=== PATIENT | male | born 1950 | race Caucasian/White ===

== ENCOUNTER 2018-09-10 06:41 | Inpatient (IN) | payer OTHER ==
[2018-09-05 20:08] LABS: PLATELET COUNT 238 10^3/uL (150-400)
[2018-09-10] MEDS ORDERED: fentaNYL 50 MCG in SYRINGE INTRATHECAL 1 SYR IT ONE (07:37)
[2018-09-10] MEDS ORDERED: morphINE PF 0.2 MG in SYRINGE INTRATHECAL 1 SYR IT ONE (07:37)
[2018-09-10] MEDS ORDERED: GABAPENTIN 300 MG CAP PO ONE (07:37)
[2018-09-10] MEDS ORDERED: ACETAMINOPHEN 500 MG TAB PO ONE (07:37)
[2018-09-10] MEDS ORDERED: ceFAZolin 2 GM/DEXTROSE 100 ML IV ONE (07:37)
[2018-09-10] MEDS ORDERED: LR 1,000 ML IV SCH (08:00)
[2018-09-10] MEDS ORDERED: BUPIVACAINE 0.25% 30 ML SDV ONE (08:19)
[2018-09-10] MEDS ORDERED: EPINEPHrine 1 MG/ML INJ ONE (08:19)
[2018-09-10] MEDS ORDERED: THROMBIN (BOVINE) 20,000 UNIT VIAL TP ONE (08:19)
[2018-09-10] MEDS ORDERED: CHLORHEXIDINE GLUC HIBICLENS 118 ML BTL TP ONE (08:19)
[2018-09-10] MEDS ORDERED: BACITRACIN 50,000 UNITS/10 ML SYR IRR ONE ×2 (08:20→13:44)
[2018-09-10] MEDS ORDERED: PROPOFOL/EMULSION 500 MG/50 ML BOTTLE IV ONE ×2 (08:47→11:04)
[2018-09-10] MEDS ORDERED: LIDOCAINE 2% 5 ML SDV ONE (08:51)
[2018-09-10] MEDS ORDERED: RANITIDINE 50 MG/2 ML VIAL ONE (08:51)
[2018-09-10] MEDS ORDERED: ONDANSETRON 4 MG/2 ML VIAL ONE (08:51)
[2018-09-10] MEDS ORDERED: METOCLOPRAMIDE 10 MG/2 ML VIAL ONE (08:51)
[2018-09-10] MEDS ORDERED: ROCURONIUM 50 MG/5 ML VIAL ONE ×2 (08:51→10:36)
[2018-09-10] MEDS ORDERED: DEXMEDETOMIDINE HCL 400 MCG in NS 100 ML IV SCH (09:00)
[2018-09-10] MEDS ORDERED: TRANEXAMIC ACID 1,000 MG in NS 100 ML IV ONE ×2 (09:00→09:24)
--- NOTE | 2018-09-10 09:03 | PDHPUP ---
History & Physical Update H&P update statement: This history and physical update is based on an assessment of the patient which was completed after admission or registration (within 24 hours), but prior to the surgery/procedure. H&P update: H&P reviewed & patient examined, no change in patient's condition since H&P completed
[2018-09-10] MEDS ORDERED: CITRATE DEXTROSE SOLN 500 ML BAG ONE ×3 (09:23→14:55)
[2018-09-10] MEDS ORDERED: fentaNYL 100 MCG/2 ML INJ ONE (09:30)
[2018-09-10] MEDS ORDERED: MAGNESIUM SULFATE 1 GM/2 ML VIAL ONE (09:31)
[2018-09-10] MEDS ORDERED: ALBUMIN 5% 250 ML BOTTLE IV ONE (09:31)
[2018-09-10] MEDS ORDERED: BACITRACIN ZINC 0.5 OZ OINTTUBE TP ONE (10:12)
[2018-09-10] MEDS ORDERED: DIAZEPAM 5 MG/ML 1 ML SYR ONE (10:21)
--- NOTE | 2018-09-10 10:53 | PDANEPAE ---
ANE Past Medical History - Cardiovascular History Hx Hypertension: Yes Hx Arrhythmias: No Hx Chest Pain: No Hx Coronary Artery / Peripheral Vascular Disease: Yes Hx CHF / Valvular Disease: No Hx Palpitations: No Cardiovascular History Comment: STENTS X2 2016. [place] 2016 - Pulmonary History Hx COPD: No Hx Asthma/Reactive Airway Disease: No Hx Recent Upper Respiratory Infection: No Hx Oxygen in Use at Home: No Hx Sleep Apnea: No Sleep Apnea Screening Result - Last Documented: Positive - Neurologic History Hx Cerebrovascular Accident: Yes Hx Seizures: No Hx Dementia: No Neurologic History Comment: HEAT INDUCED STROKE 2011 - Endocrine History Hx Diabetes: Yes Endocrine History Comment: NIDDM - Renal History Hx Renal Disorders: No - Liver History Hx Hepatic Disorders: No - Neurological & Psychiatric Hx Hx Neurological and Psychiatric Disorders: No - Cancer History Hx Cancer: Yes Cancer History Comment: SKIN - Congenital Disorder History Hx Congenital Disorders: No - GI History Hx Gastrointestinal Disorders: Yes Gastrointestinal History Comment: GERD - Other Health History Other Health History: DJD. MILD GLAUCOMA - Chronic Pain History Chronic Pain: Yes (LOWER BACK) - Surgical History Prior Surgeries: LUMBAR FUSION X3 MOST RECENT 2013. RT TOTAL KNEE. RT KNEE ACL. RT THUMB RECONSTRUCTION. RT WRIST/ELBOW. RT SHLDR RTC. LT SHLDR RECONSTRLUCTION. RAEANN. UMBILICAL HERNIA. TONSILLECTOMY ANE Review of Systems Review of Systems: - Exercise capacity METS (RN): 3 METS ANE Patient History - Allergies Allergies/Adverse Reactions: adhesive Allergy (Verified 08/16/18 11:18) Iodinated Contrast- Oral and IV Dye Allergy (Verified 08/16/18 11:18) BLISTERS povidone-iodine [From Betadine] Allergy (Verified 08/16/18 11:18) BLISTERS soap [From Betadine] Allergy (Verified 08/16/18 11:18) BLISTERS - Home Medications Home Medications: Acetaminophen [Tylenol ES 500 mg (*)] 1,500 mg PO HS 08/16/18 [Last Taken ] Aspirin [Aspirin 81mg (*)] 81 mg PO DAILY 08/16/18 [Last Taken 09/09/18] Atorvastatin Calcium [Lipitor 40 mg (*)] 40 mg PO DAILY 08/16/18 [Last Taken ] Carboxymethylcellulose 1% [Refresh Celluvisc (*)] 1 drop EACHEYE DAILY 08/16/18 [Last Taken 09/03/18] Chlorthalidone [Chlorthalidone 25 mg (*)] 25 mg PO DAILY 08/16/18 [Last Taken ] Diltiazem HCl [Cartia XT 240mg] 240 mg PO DAILY 08/16/18 [Last Taken 09/10/18] Fluticasone Nasal [Flonase Nasal [place] (RX)] 2 sprays NASAL HS 08/16/18 [Last Taken 09/09/18] Furosemide [Lasix 40 MG (*)] 40 mg PO DAILY 08/16/18 [Last Taken 09/08/18] Gabapentin [Gralise] 900 mg PO DAILY18 08/16/18 [Last Taken 09/09/18] Herbals/Supplements -Info Only 1 ea PO DAILY 08/16/18 [Last Taken 09/03/18] Insulin Glargine [Lantus] 60 unit SC HS 08/16/18 [Last Taken 09/09/18] Insulin Lispro [Humalog] 45 unit SQ TIDMEAL 08/16/18 [Last Taken 09/09/18] Isosorbide Mononitrate [Imdur 30 mg (*)] 90 mg PO DAILY 08/16/18 [Last Taken ] Loratadine 10 mg PO DAILY 08/16/18 [Last Taken 09/08/18] Montelukast Sodium [Singulair 10 mg (*)] 10 mg PO DAILY 08/16/18 [Last Taken ] [place]-3 Fatty Acids [Fish Oil 1000 mg (*)] 1,000 mg PO DAILY 08/16/18 [Last Taken 09/03/18] Pantoprazole Sodium [Protonix 40mg (*)] 40 mg PO DAILY 08/16/18 [Last Taken 05/14] Prasugrel HCl [Effient 10mg (*)] 10 mg PO DAILY 08/16/18 [Last Taken 09/03/18] Ranolazine [RANEXA 500mg (RX)] 500 mg PO BID 08/16/18 [Last Taken 09/10/18] Sucralfate [Carafate 1 GM (*)] 1 gm PO TID 08/16/18 [Last Taken 09/10/18] diphenhydrAMINE [Benadryl 25 MG (*)] 75 mg PO HS 08/16/18 [Last Taken 09/09/18] metFORMIN HCL [Glucophage 500 mg (*)] 500 mg PO BIDMEAL 08/16/18 [Last Taken ] tiZANidine HCL [Zanaflex 2MG (*)] 2 mg PO DAILY 08/16/18 [Last Taken 09/08/18] - NPO status NPO Since - Liquids (Date): 09/10/18 NPO Since - Liquids (Time): 05:15 NPO Since - Solids (Date): 09/09/18 NPO Since - Solids (Time): 20:00 - Smoking Hx Smoking Status: Former smoker ANE Labs/Vital Signs - Labs Result Diagrams: 09/05/18 11:30 09/05/18 11:30 - Vital Signs Blood Pressure: 106/62 Heart Rate: 63 Respiratory Rate: 18 O2 Sat (%): 92 Height: 182.88 cm Weight: 131.542 kg ANE Physical Exam - Airway Neck exam: decreased ROM Mallampati Score: Class 3 Mouth exam: normal dental/mouth exam - Pulmonary Pulmonary: no respiratory distress, no rales or rhonchi, reduced air movement - Cardiovascular Cardiovascular: regular rate and rhythym, no murmur, rub, or gallop - ASA Status ASA Status: III ANE Anesthesia Plan Anesthesia Plan: general endotracheal anesthesia Lines/Monitors: arterial line, additional IV Specialized Airway: video laryngoscope
[2018-09-10] MEDS ORDERED: ePHEDrine SULFATE 25 MG/5 ML SYR ONE ×2 (11:04→13:15)
[2018-09-10] MEDS ORDERED: CALCIUM CHLORIDE 1 GM/10 ML INJ ONE (11:05)
[2018-09-10] MEDS ORDERED: NALOXONE HCL 0.4 MG/ML INJ IVP PRN ×2 (12:14→16:53)
[2018-09-10] MEDS ORDERED: ONDANSETRON 4 MG/2 ML VIAL IVP PRN ×2 (12:14→16:53)
[2018-09-10] MEDS ORDERED: ALBUTEROL 3 ML DEYVIAL IH PRN (12:14)
[2018-09-10] MEDS ORDERED: fentaNYL 100 MCG/2 ML INJ IVP PRN (12:14)
[2018-09-10] MEDS ORDERED: DEXAMETHASONE 4 MG/ML VIAL IVP PRN (12:14)
[2018-09-10] MEDS ORDERED: LR 500 ML IV PRN (12:14)
[2018-09-10] MEDS ORDERED: DIAZEPAM 5 MG/ML 1 ML SYR IVP PRN (12:14)
[2018-09-10] MEDS ORDERED: PROMETHAZINE HCL 25 MG/ML INJ IVP PRN (12:14)
[2018-09-10] MEDS ORDERED: PROPOFOL 200 MG/20 ML VIAL ONE ×4 (12:52→16:27)
[2018-09-10] MEDS ORDERED: ceFAZolin 1 GM VIAL ONE ×2 (13:26→15:51)
[2018-09-10] MEDS ORDERED: ONDANSETRON DISINTEGRATING 4 MG TAB PO PRN (16:53)
[2018-09-10] MEDS ORDERED: LACTULOSE 20 GM/30 ML UDCUP PO PRN (16:53)
[2018-09-10] MEDS ORDERED: MAGNESIUM HYDROXIDE 30 ML UDCUP PO PRN (16:53)
[2018-09-10] MEDS ORDERED: diphenhydrAMINE 25 MG CAP PO PRN (16:53)
[2018-09-10] MEDS ORDERED: BISACODYL 10 MG SUPP PR PRN (16:53)
--- NOTE | 2018-09-10 16:57 | SOAPPROG ---
SOAP Progress Note Assessment/Plan: Assessment: 68 yo M sp L5/S1 hardware removal, L2-S1 fusion with L2/3, L5/S1 TLIF Plan: stable to 3N LSO brace to be fit in am NASREEN x 1 please call with neuro changes 09/10/18 16:56 Subjective: + back pain, no leg pain. Objective: Vital Signs Temp Pulse Resp BP Pulse Ox 36.9 C 63 18 106/62 92 09/10/18 08:07 09/10/18 10:53 09/10/18 10:53 09/10/18 10:53 09/10/18 10:53 Laboratory Results 09/05/18 11:30 09/10/18 13:02 somnolent PERRL, EOMI UNIQUE x 4 + light touch ICD10 Worksheet Patient Problems: Problems Problem Status Onset Fusion of spine of lumbar region Acute - ICD10 Problem Qualifiers (1) Fusion of spine of lumbar region
[2018-09-10] MEDS ORDERED: NS 1,000 ML IV SCH (17:00)
--- NOTE | 2018-09-10 17:15 | POSTANESTH ---
Post Anesthetic Evaluation Cardiovascular Status: Normal, Stable, Similar to Pre-Op Cond Respiratory Status: Normal, Stable, Similar to Pre-op Cond. Level of Consciousness/Mental Status: Mildly Sleepy, Arousable Pain Control: Adequate, Prn Tx Ordered Nausea/Vomiting Control: Adequate, Prn Tx Ordered Complications Possibly Related to Anesthesia: None Noted
--- NOTE | 2018-09-10 17:35 | PDMN ---
Medical Necessity Medical necessity: Pt meets inpt criteria per MD order and [facility] [place] Lumbar Fusion, 2 days, [facility] IP only list. 68 y/o sp L5/S1 hardware removal, L2-S1 fusion w/L2/3, L5/S1 TLIF.
[2018-09-10] MEDS: INSULIN LISPRO 100 UNIT/ML SC SCH (19:32)
[2018-09-10] MEDS: SENNOSIDES/DOCUSATE SODIUM TAB PO SCH (22:05)
[2018-09-10] MEDS: RANOLAZINE 500 MG TAB.ER PO SCH (22:06)
[2018-09-10] MEDS: diphenhydrAMINE 25 MG CAP PO SCH (22:08)
[2018-09-10] MEDS: ACETAMINOPHEN 500 MG TAB PO SCH (22:08)
[2018-09-10] MEDS: POLYETHYLENE GLYCOL 3350 17 GM PKT PO SCH (22:09)
[2018-09-10] MEDS: SUCRALFATE 1 GM TAB PO SCH (22:31)
[2018-09-10] MEDS: ceFAZolin 2 GM/DEXTROSE 100 ML IV SCH (23:21)
[2018-09-10] MEDS: INSULIN GLARGINE 100 UNITS/ML UNIT SC SCH (23:35)
[2018-09-10] MEDS: FLUTICASONE NASAL 120 SPRAYS/16 GM MDI EACHNARE SCH (23:40)
--- NOTE | 2018-09-11 00:40 | PDHOSCONS ---
History and Physical - Chief Complaint Neurosurgery consult for eval/mgmt DM/HTN - History of Present Illness 68 yo M with PMH that includes CAD, DM, HTN, obesity and multiple prior spinal surgeries presenting for L2-S1 fusion revision. He has had failed prior spinal fusion with two previously failed revisions and has been having issues with increased pain radiating into his buttocks and was found to have failure of bony fusion and loosening screws. He is now being seen in the post operative period. He states that currently he is not in much pain, he notes that he lives with pain constantly and that it is his friend, and he does not let it bother him. He notes that other than his back pain he has been in relatively good health recently. He states his DM and HTN have been well controlled. No recent chest pain and since his stent he has not had recent cardiac issues. He resides in [place] with his and has a daughter and grand daughter he is very close to there. He notes that he always has slightly low oxygen levels, even when he is feeling fine and just sitting around his oxygen will dip into the 80s. He does not use oxygen at home. History Information - Allergies/Home Medication List Allergies/Adverse Reactions: adhesive Allergy (Verified 08/16/18 11:18) Iodinated Contrast- Oral and IV Dye Allergy (Verified 08/16/18 11:18) BLISTERS povidone-iodine [From Betadine] Allergy (Verified 08/16/18 11:18) BLISTERS soap [From Betadine] Allergy (Verified 08/16/18 11:18) BLISTERS Home Medications: Acetaminophen [Tylenol ES 500 mg (*)] 1,500 mg PO HS 08/16/18 [Last Taken ] Aspirin [Aspirin 81mg (*)] 81 mg PO DAILY 08/16/18 [Last Taken 09/09/18] Atorvastatin Calcium [Lipitor 40 mg (*)] 40 mg PO DAILY 08/16/18 [Last Taken ] Carboxymethylcellulose 1% [Refresh Celluvisc (*)] 1 drop EACHEYE DAILY 08/16/18 [Last Taken 09/03/18] Chlorthalidone [Chlorthalidone 25 mg (*)] 25 mg PO DAILY 08/16/18 [Last Taken ] Diltiazem HCl [Cartia XT 240mg] 240 mg PO DAILY 08/16/18 [Last Taken 09/10/18] Fluticasone Nasal [Flonase Nasal [place] (RX)] 2 sprays NASAL HS 08/16/18 [Last Taken 09/09/18] Furosemide [Lasix 40 MG (*)] 40 mg PO DAILY 08/16/18 [Last Taken 09/08/18] Gabapentin [Gralise] 900 mg PO DAILY18 08/16/18 [Last Taken 09/09/18] Herbals/Supplements -Info Only 1 ea PO DAILY 08/16/18 [Last Taken 09/03/18] Insulin Glargine [Lantus] 60 unit SC HS 08/16/18 [Last Taken 09/09/18] Insulin Lispro [Humalog] 45 unit SQ TIDMEAL 08/16/18 [Last Taken 09/09/18] Isosorbide Mononitrate [Imdur 30 mg (*)] 90 mg PO DAILY 08/16/18 [Last Taken ] Loratadine 10 mg PO DAILY 08/16/18 [Last Taken 09/08/18] Montelukast Sodium [Singulair 10 mg (*)] 10 mg PO DAILY 08/16/18 [Last Taken ] [place]-3 Fatty Acids [Fish Oil 1000 mg (*)] 1,000 mg PO DAILY 08/16/18 [Last Taken 09/03/18] Pantoprazole Sodium [Protonix 40mg (*)] 40 mg PO DAILY 08/16/18 [Last Taken 05/14] Prasugrel HCl [Effient 10mg (*)] 10 mg PO DAILY 08/16/18 [Last Taken 09/03/18] Ranolazine [RANEXA 500mg (RX)] 500 mg PO BID 08/16/18 [Last Taken 09/10/18] Sucralfate [Carafate 1 GM (*)] 1 gm PO TID 08/16/18 [Last Taken 09/10/18] diphenhydrAMINE [Benadryl 25 MG (*)] 75 mg PO HS 08/16/18 [Last Taken 09/09/18] metFORMIN HCL [Glucophage 500 mg (*)] 500 mg PO BIDMEAL 08/16/18 [Last Taken ] tiZANidine HCL [Zanaflex 2MG (*)] 2 mg PO DAILY 08/16/18 [Last Taken 09/08/18] I have personally reviewed and updated: family history, medical history, social history, surgical history - Past Medical History coronary artery disease, COPD, CVA, diabetes type 2, hypertension, hyperlipidemia, TIA Additional medical history: chronic back pain. 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 morbid obesity. DDD. esophageal spasm. GERD - Surgical History Reports: angioplasty, cholecystectomy, hernia repair, spinal surgery (multiple fusions and revisions), coronary stent Additional surgical history: multiple knee surgeries. shoulder replacement. knee replacement. tonsillectomy. sinus surgery. 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 Review of Systems Review of Systems: ROS: 10pt was reviewed & negative except for what was stated in HPI & below Physical Exam Physical Exam: Temp Pulse Resp BP Pulse Ox 36.7 C 73 16 122/60 H 94 09/10/18 23:58 09/10/18 23:58 09/10/18 23:58 09/10/18 23:58 09/10/18 23:58 O2 (L/minute) 2 Constitutional: no apparent distress, appears nourished Eyes: PERRL, anicteric sclera Ears, Nose, Mouth, Throat: moist mucous membranes, hearing normal Cardiovascular: regular rate and rhythym, no murmur, rub, or gallop, No edema Respiratory: reduced air movement, inspiratory crackles Gastrointestinal: normoactive bowel sounds, soft, non-tender abdomen, no palpable masses Genitourinary: no bladder tenderness Skin: warm, normal color Musculoskeletal: full muscle strength Neurologic: AAOx3 Psychiatric: interacting appropriately, not anxious, not encephalopathic Lab Data & Imaging Review 09/05/18 11:30 09/10/18 13:02 WBC 7.66 10^3/uL (3.80-9.50) 09/05/18 11:30 RBC 4.98 10^6/uL (4.40-6.38) 09/05/18 11:30 Hgb 15.7 g/dL (13.7-17.5) 09/05/18 11:30 Hct 45.2 % (40.0-51.0) 09/05/18 11:30 MCV 90.8 fL (81.5-99.8) 09/05/18 11:30 MCH 31.5 pg (27.9-34.1) 09/05/18 11:30 MCHC 34.7 g/dL (32.4-36.7) 09/05/18 11:30 RDW 13.6 % (11.5-15.2) 09/05/18 11:30 Plt Count 238 10^3/uL (150-400) 09/05/18 11:30 MPV 10.3 fL (8.7-11.7) 09/05/18 11:30 Neut % (Auto) 47.7 % (39.3-74.2) 09/05/18 11:30 Lymph % (Auto) 36.6 % (15.0-45.0) 09/05/18 11:30 [place] % (Auto) 10.2 % (4.5-13.0) 09/05/18 11:30 Eos % (Auto) 4.4 % (0.6-7.6) 09/05/18 11: Baso % (Auto) 0.7 % (0.3-1.7) 09/05/18 11: Nucleat RBC Rel Count 0.0 % (0.0-0.2) 09/05/18 11:30 Absolute Neuts (auto) 3.66 10^3/uL (1.70-6.50) 09/05/18 11:30 Absolute Lymphs (auto) 2.80 10^3/uL (1.00-3.00) 09/05/18 11:30 Absolute Monos (auto) 0.78 10^3/uL (0.30-0.80) 09/05/18 11:30 Absolute Eos (auto) 0.34 10^3/uL (0.03-0.40) 09/05/18 11:30 Absolute Basos (auto) 0.05 10^3/uL (0.02-0.10) 09/05/18 11:30 Absolute Nucleated RBC 0.00 10^3/uL (0-0.01) 09/05/18 11:30 Immature Gran % 0.4 % (0.0-1.1) 09/05/18 11:30 Immature Gran # 0.03 10^3/uL (0.00-0.10) 09/05/18 11:30 Puncture Site Cancelled 09/10/18 13:21 Patient Temperature Cancelled 09/10/18 13:21 pCO2 Cancelled 09/10/18 13:21 pO2 Cancelled 09/10/18 13:21 Total CO2 Cancelled 09/10/18 13:21 ABG pH Cancelled 09/10/18 13:21 ABG PO2/FiO2 Ratio Cancelled 09/10/18 13:21 ABG HCO3 Cancelled 09/10/18 13:21 ABG O2 Sat (Calculated) Cancelled 09/10/18 13:21 ABG O2 Saturation Cancelled 09/10/18 13:21 ABG Base Excess Cancelled 09/10/18 13:21 ABG Hemoglobin Cancelled 09/10/18 13:21 Total O2 Concentration Cancelled 09/10/18 13:21 O2 Concentration % Cancelled 09/10/18 13:21 POC Sodium Cancelled 09/10/18 13:21 POC Potassium Cancelled 09/10/18 13:21 Respiration Rate Cancelled 09/10/18 13:21 Actual Respiration Rate Cancelled 09/10/18 13:21 Set Respiration Rate Cancelled 09/10/18 13:21 SIMV Cancelled 09/10/18 13:21 Assist Control Cancelled 09/10/18 13:21 Vent Rate Cancelled 09/10/18 13:21 Inspiratory Time Cancelled 09/10/18 13:21 Expiratory Pressure Cancelled 09/10/18 13:21 Tidal Volume Cancelled 09/10/18 13:21 End Tidal CO2 Cancelled 09/10/18 13:21 PEEP Cancelled 09/10/18 13:21 Inspiratory Pressure Cancelled 09/10/18 13:21 Peak Inspir Pressure Cancelled 09/10/18 13:21 Pressure Support Cancelled 09/10/18 13:21 Pressure Control Cancelled 09/10/18 13:21 CPAP Cancelled 09/10/18 13:21 BiPAP Cancelled 09/10/18 13:21 Mode BiPAP Cancelled 09/10/18 13:21 Inspir/Expir Ratio Cancelled 09/10/18 13:21 Sodium 138 mEq/L (135-145) 09/05/18 11:30 Potassium 4.3 mEq/L (3.5-5.2) 09/05/18 11:30 Chloride 103 mEq/L (97-110) 09/05/18 11:30 Carbon Dioxide 23 mEq/l (22-31) 09/05/18 11:30 Anion Gap 12 mEq/L (6-14) 09/05/18 11:30 BUN 18 mg/dL (7-23) 09/05/18 11:30 Creatinine 0.9 mg/dL (0.7-1.3) 09/05/18 11:30 Estimated GFR > 60 09/05/18 11:30 Glucose 145 mg/dL (70-100) H 09/10/18 13:02 POC Glucose 89 mg/dL (70-100) 09/10/18 23:14 Calcium 9.3 mg/dL (8.5-10.4) 09/05/18 11:30 Ionized Calcium 1.18 MMOL/L (1.12-1.30) 09/10/18 13:02 Patient ABO/Rh O NEGATIVE 09/05/18 11:30 Antibody Screen NEGATIVE 09/05/18 11:30 Assessment & Plan Assessment: Fusion of spine of lumbar region (Acute) 68 yo M with PMH of HTN, DM2, obesity, CAD presenting for L2-S1 spinal fusion revision # L2-S1 spinal fusion revision: patient doing well postoperatively, drain still in place and patient on bed rest. PT/OT when cleared by NSG. # DM2: patient states it has been well controlled recently and so far here sugars are in the low range, continued on metformin and insulin regimen which is reasonable so long as no bump in creatinine in post op period, will monitor # CAD: with hx of several stents, patient chest pain free currently, no recent issues, does not appear to have acute decompensation, continue op meds including effient, asa and statin so long as ok with nsg #HTN: bp currently on the low end, resumed on imdur, dilt and lasix. Will monitor BP to be sure he is not overmedicated when resuming these and monitor renal function # HLD: continue statin # hypoxia: with o2 sats in 80s to low 90s on 2L, patient states his o2 always runs low somewhat, likely in part due to OHS/GARRICK # IP status Patient new to my care. Old records reviewed and summarized as above. Care plan reviewed with VIJAYA ARRINGTON. Thank you for this consultation, medicine will follow while in house.
[2018-09-11 04:58] LABS: PLATELET COUNT 189 10^3/uL (150-400)
[2018-09-11] MEDS: GABAPENTIN 900 MG PO SCH ×2 (05:20→18:22)
--- NOTE | 2018-09-11 07:40 | NEUSURGPN ---
Date of Surgery: 09/10/18 Post Op Day: 1 Assessment/Plan: Assessment: 68 yo M sp L5/S1 hardware removal, L2-S1 fusion with L2/3, L5/S1 TLIF POD#1 Plan: -Patient to be fit with brace this am -Post op xrays pending -NASREEN, will keep in -Pain management -PT/OT -Appreciate Hospitalist help with medical management Discussed with Dr Ramirez Please call with questions/concerns Subjective: minimal low back pain Objective: AxOx4 PERRLA MAEx4 5/5 BLE Sensation intact to light touch BLE Incision CDI NASREEN patent Neuro Check Frequency: per routine Urinary Catheter in Place: No - Physician Discussed Patient with : Gabrielle Neurosurgery Physical Exam - Vitals, I&O, Labs I and O 09/10/18 09/11/18 09/12/18 05:59 05:59 05:59 Intake Total 4440 Output Total 2845 Balance 1595 Weight 131.54 kg Intake: Oral (ml) 1450 IV Intake (ml) 2990 Output: Urine (ml) 1425 Catheter 1425 Estimated Blood Loss (ml) 1000 NASREEN Drain Output (ml) 420 Right Back 420 Other: Intake Quantity Yes Sufficient Vital Signs Temp Pulse Resp BP Pulse Ox 37.1 C 70 18 121/63 H 91 L 09/11/18 07:29 09/11/18 07:29 09/11/18 07:29 09/11/18 07:29 09/11/18 07:29 Laboratory Results 09/11/18 04:26 09/11/18 04:26 ICD10 Worksheet Patient Problems: Problems Problem Status Onset Fusion of spine of lumbar region Acute
[2018-09-11] MEDS: INSULIN LISPRO 100 UNIT/ML SC SCH ×3 (09:03→17:48)
[2018-09-11] MEDS: ENOXAPARIN 40 MG/0.4 ML SYR SC SCH (09:04)
[2018-09-11] MEDS: CETIRIZINE 10 MG TAB PO SCH (09:06)
[2018-09-11] MEDS: DILTIAZEM XR 240 MG CAP PO SCH (09:06)
[2018-09-11] MEDS: PANTOPRAZOLE SODIUM 40 MG TAB PO SCH (09:06)
[2018-09-11] MEDS: ISOSORBIDE MONONITRATE 30 MG TAB.SR PO SCH (09:06)
[2018-09-11] MEDS: ceFAZolin 2 GM/DEXTROSE 100 ML IV SCH (09:06)
[2018-09-11] MEDS: ATORVASTATIN CALCIUM 40 MG TAB PO SCH (09:06)
[2018-09-11] MEDS: POLYETHYLENE GLYCOL 3350 17 GM PKT PO SCH ×3 (09:07→22:31)
[2018-09-11] MEDS: RANOLAZINE 500 MG TAB.ER PO SCH ×2 (09:07→22:29)
[2018-09-11] MEDS: MONTELUKAST SODIUM 10 MG TAB PO SCH (09:07)
[2018-09-11] MEDS: FUROSEMIDE 40 MG TAB PO SCH (09:07)
[2018-09-11] MEDS: ASPIRIN 81 MG CHEWABLE TAB PO SCH (09:07)
[2018-09-11] MEDS: SENNOSIDES/DOCUSATE SODIUM TAB PO SCH ×2 (09:07→22:31)
[2018-09-11] MEDS: tiZANidine HCL 2 MG TAB PO SCH (09:07)
[2018-09-11] MEDS: CHLORTHALIDONE 25 MG TAB PO SCH (09:07)
[2018-09-11] MEDS: CARBOXYMETHYLCELLULOSE 1% 0.4 ML DROPERETTE EACHEYE SCH (09:08)
[2018-09-11] MEDS: SUCRALFATE 1 GM TAB PO SCH ×3 (09:08→22:29)
--- NOTE | 2018-09-11 10:42 | GOP ---
[f rep st] OPERATIVE REPORT DATE OF OPERATION: 09/10/2018 SURGEON: John Paul Anthony MD NEUROSURGEON: FRANCISCA Cervantes [employer] UT[employer] WORKER: FRANCISCA Berumen ANESTHESIA: General endotracheal. PREOPERATIVE DIAGNOSIS: Severe adjacent level degeneration and spinal stenosis at L2-3, status post multiple prior lumbosacral surgeries from L3 through S1 with instrumentation and fusion. L5-S1 nonu nion with failed hardware and loosened screws. Intractable back pain and bilateral lower extremity r adicular symptoms. Failed conservative care. Morbid obesity. POSTOPERATIVE DIAGNOSIS: Severe adjacent level degeneration and spinal stenosis at L2-3 status post multiple prior lumbosacral surgeries from L3 through S1 with instrumentation and fusion. L5-S1 nonun ion with failed hardware and loosened the screws. Intractable back pain and bilateral lower extremit y radicular symptoms. Failed conservative care. Morbid obesity. PROCEDURE PERFORMED: Removal of posterior nonsegmental (pedicle screw) fixation at L5-S1 with explor ation of spinal fusion and right-sided far lateral transpedicular decompression at the L2-3 and L5-S1 levels with redo posterior hemilaminectomy and foraminotomies at L3-4 and L4-5. L2 through S1 poste rior segment segmental (pedicle screw) fixation and posterolateral fusion with local autograft, bone morphogenic protein, and morselized allograft. L2-3 and L5-S1 posterior/transforaminal lumbar interbo dy fusion with 2 structural PEEK interbody spacers, local autograft and bone morphogenic protein. Us e of intraoperative microscopy, fluoroscopy, and computer volumetric stereotactic navigation with int raoperative neurophysiologic testing. Injection of intrathecal narcotic analgesics in subcutaneous a nd intramuscular local anesthesia for postoperative pain control. FINDINGS: ESTIMATED BLOOD LOSS: 500 cc. INDICATIONS: The patient is a 68-year-old, morbidly obese man with intractable low back pain and lamberto ateral lower extremity radicular symptoms, secondary to a nonunion at the L5-S1 level and loosened rowan rdware, and severe neuroforaminal encroachment with multiple prior surgeries and adjacent level degen eration and spinal stenosis the L2-3 level as well. He has failed extensive conservative care and pr esents now for revision posterior surgical decompression and stabilization removal and replacement of hardware, and exploration of spinal fusion. DESCRIPTION OF PROCEDURE: After informed consent was obtained, the patient was taken to the operatin g room and placed in the prone position on the Miguel A table. The thoracolumbosacral areas were prep ped and draped in a sterile fashion. After fluoroscopic localization of the correct levels the subcu taneous and intramuscular tissues were infiltrated with local anesthesia. A midline linear incision was then created from approximately L2 to S1. This was carried down to the fascial layer, which was incised using monopolar electrocautery and carried in a subperiosteal plane along the spinous processes and lamina bilaterally. Note that the exposure took approximately 5 jyotsna es as long as normal due to the extreme amount of obesity and extensive amount of scar tissue. The p rior screws were eventually identified and removed. This was much more difficult than normal given t hat we really could not get very far out lateral due to scar tissue and morbid obesity. Eventually, we did get the screws out and brought the microscope in and did a far lateral transpedicular decompre ssions at the L2-3 and L5-S1 levels and redo posterior hemilaminectomies and foraminotomies at the L3 -4 and L4-5 levels. Again, this took approximately 3 to 4 times as long as normal due to increase bl ood loss due to the increased abdominal pressure from his obesity and the extreme depth of the incisi on. None of the instruments we had were long enough even though we were using the bariatric sat. Ev entually, we were able to achieve excellent decompressions, but this took approximately 4 to 5 times as long as normal. The Stealth neuronavigational system was then brought in and pedicle screws placed at L2-S1 bilateral ly. Each individual screw was tested neurophysiologically with monopolar electrostimulation and inte rpretation of the potentials by the surgeon. Again this was much more time consuming than normal giv en this obesity, blood loss, and scar tissue. Following placement of the screws serial distraction w as created first across L5-S1, then at L2-3 during which time complete diskectomies were performed wi th preparation of the endplates and placement of 2 structural PEEK interbody spacers, local autograft and bone morphogenic protein for L2-3 and L5-S1 posterior/transforaminal lumbar interbody fusion frederic hniques. The small rods were removed and larger rods extending from L2-S1 replaced and secured under a slight amount of compression in order to facilitate bony union and to minimize the potential for p osterior graft migration. We also maximized the amount of lordosis we could achieve. Again, all thi s took approximately 4 to 5 times as long as normal primarily due to the depth of the incision, the s car tissue, and his obesity. Eventually, we did achieve an excellent surgical outcome and after plac ing the rods, performed extensive decortication from L2 to S1 and placed the residual local autograft , along with bone morphogenic protein and morselized allograft out laterally for an L2 to S1 posterol ateral fusion. 200 mcg of Duramorph, along with 50 mcg of fentanyl were injected intrathecally for p ostoperative pain control. The subcutaneous and intramuscular tissues were re-infiltrated with local anesthesia. A drain was placed and after re-verification of good position of the screws, rods, and interbody spacers using biplanar fluoroscopy, the wound was closed in a layered fashion using interru pted Vicryl sutures, followed by Steri-Strips on the skin. COMPLICATIONS: None. DISPOSITION: The patient was extubated and transferred to the recovery room in stable condition. /[id number]/MODL
--- NOTE | 2018-09-11 13:58 | HOSPPROG ---
Hospitalist Progress Note Assessment/Plan: Fusion of spine of lumbar region (Acute) 68 yo M with PMH of HTN, DM2, obesity, CAD presenting for L2-S1 spinal fusion revision. First encounter, chart reviewed. # L2-S1 spinal fusion revision: -patient doing well postoperatively -drain still in place -PT/OT # DM2: -patient states it has been well controlled recently and so far here sugars are in the low range, -continued on metformin and insulin regimen which is reasonable so long as no bump in creatinine in post op period -will monitor # CAD: -with hx of several stents, -patient chest pain free currently, no recent issues, does not appear to have acute decompensation, -continue op meds including effient, -asa and statin so long as ok with nsg #HTN: -bp currently on the low end, -resumed on imdur, dilt and lasix. -Will monitor BP to be sure he is not overmedicated when resuming these and monitor renal function # HLD: -continue statin # hypoxia: -with o2 sats in 80s to low 90s on 2L, -patient states his o2 always runs low somewhat, likely in part due to OHS/GARRICK # IP status Patient new to my care Thank you for this consultation, medicine will follow while in house. Subjective: Up in chair. No pain currently. Wants to leave the hospital. Objective: Vital Signs Temp Pulse Resp BP Pulse Ox 36.8 C 73 19 103/50 L 92 09/11/18 11:16 09/11/18 11:16 09/11/18 11:16 09/11/18 11:16 09/11/18 11:16 Laboratory Results 09/11/18 04:26 09/11/18 04:26 09/10/18 09/11/18 09/12/18 05:59 05:59 05:59 Intake Total 4440 500 Output Total 2845 60 Balance 1595 440 - Physical Exam Constitutional: appears nourished, not in pain, obese Eyes: PERRL, anicteric sclera, EOMI Ears, Nose, Mouth, Throat: moist mucous membranes, hearing normal, ears appear normal Cardiovascular: No JVD, No tachycardia, No edema Respiratory: no respiratory distress, no rales or rhonchi, reduced air movement Gastrointestinal: normoactive bowel sounds, No tenderness, No ascites Skin: warm, normal color, No mottled Musculoskeletal: joint tenderness, pain with ROM, generalized weakness Neurologic: AAOx3 Psychiatric: interacting appropriately, not anxious, not encephalopathic, thought process linear ICD10 Worksheet Patient Problems: Problems Problem Status Onset Fusion of spine of lumbar region Acute
--- NOTE | 2018-09-11 14:49 | ASMTCMCOM ---
CM Note CM Note Notes: Pt had planned spinal surgery, resides with spouse and adult dghtr resides in basement. PT rec home/outpatient, OT rec home/HHC. CM to follow pt progress. Date Signed: 09/11/2018 02:48 PM Electronically Signed By:KRISTEN Foreman
[2018-09-11] MEDS: HYDROmorphONE/DILAUDID 1 MG/ML INJ IVP PRN ×2 (17:47→21:26)
[2018-09-11] MEDS: metFORMIN HCL 500 MG TAB PO SCH (17:48)
[2018-09-11] MEDS: oxyCODONE IR 5 MG TAB PO PRN ×2 (18:01→22:36)
[2018-09-11] MEDS: ACETAMINOPHEN 500 MG TAB PO SCH (22:28)
[2018-09-11] MEDS: diphenhydrAMINE 25 MG CAP PO SCH (22:29)
[2018-09-11] MEDS: FLUTICASONE NASAL 120 SPRAYS/16 GM MDI EACHNARE SCH (22:31)
[2018-09-11] MEDS: INSULIN GLARGINE 100 UNITS/ML UNIT SC SCH (23:23)
[2018-09-12] MEDS: oxyCODONE IR 5 MG TAB PO PRN ×4 (04:46→18:27)
--- NOTE | 2018-09-12 07:37 | SOAPPROG ---
SOAP Progress Note Assessment/Plan: Assessment: 68 yo male POD #2 sp L2-S1 fusion with L2/3 and 5/1 TLIF. Doing well this AM Plan: Continue NASREEN to self suction PT/OT as tolerated NASREEN to self suction 09/12/18 07:33 09/12/18 12:41 09/12/18 12:42 Subjective: lying in bed, comfortable. Denies leg pain tingling or weakness. Objective: Vital Signs Temp Pulse Resp BP Pulse Ox 36.6 C 65 18 134/62 H 90 L 09/12/18 07:26 09/12/18 07:26 09/12/18 07:26 09/12/18 07:26 09/12/18 07:26 Laboratory Results 09/11/18 04:26 09/11/18 04:26 09/11/18 09/12/18 09/13/18 05:59 05:59 05:59 Intake Total 4440 500 400 Output Total 2845 305 Balance 1595 195 400 NASREEN: 305ml Neuro: MICHELLE, sens +LT follows commands Dressing: CDI Ambulatory in LSO brace Post op lumbar xrays show well positioned hardware ICD10 Worksheet Patient Problems: Problems Problem Status Onset Fusion of spine of lumbar region Acute
[2018-09-12] MEDS: INSULIN LISPRO 100 UNIT/ML SC SCH ×3 (08:48→21:48)
[2018-09-12] MEDS: ENOXAPARIN 40 MG/0.4 ML SYR SC SCH (08:48)
[2018-09-12] MEDS: DILTIAZEM XR 240 MG CAP PO SCH (08:49)
[2018-09-12] MEDS: PANTOPRAZOLE SODIUM 40 MG TAB PO SCH (08:49)
[2018-09-12] MEDS: RANOLAZINE 500 MG TAB.ER PO SCH ×2 (08:49→21:47)
[2018-09-12] MEDS: FUROSEMIDE 40 MG TAB PO SCH (08:49)
[2018-09-12] MEDS: ASPIRIN 81 MG CHEWABLE TAB PO SCH (08:49)
[2018-09-12] MEDS: ISOSORBIDE MONONITRATE 30 MG TAB.SR PO SCH (08:49)
[2018-09-12] MEDS: CARBOXYMETHYLCELLULOSE 1% 0.4 ML DROPERETTE EACHEYE SCH (08:49)
[2018-09-12] MEDS: tiZANidine HCL 2 MG TAB PO SCH (08:49)
[2018-09-12] MEDS: metFORMIN HCL 500 MG TAB PO SCH ×2 (08:50→18:27)
[2018-09-12] MEDS: METHOCARBAMOL 750 MG TAB PO PRN ×3 (08:50→21:46)
[2018-09-12] MEDS: SUCRALFATE 1 GM TAB PO SCH ×3 (08:50→21:46)
[2018-09-12] MEDS: ATORVASTATIN CALCIUM 40 MG TAB PO SCH (08:50)
[2018-09-12] MEDS: CHLORTHALIDONE 25 MG TAB PO SCH (08:50)
[2018-09-12] MEDS: MONTELUKAST SODIUM 10 MG TAB PO SCH (08:50)
[2018-09-12] MEDS: CETIRIZINE 10 MG TAB PO SCH (08:50)
[2018-09-12] MEDS: SENNOSIDES/DOCUSATE SODIUM TAB PO SCH ×2 (09:01→21:49)
[2018-09-12] MEDS: POLYETHYLENE GLYCOL 3350 17 GM PKT PO SCH ×3 (09:01→21:49)
--- NOTE | 2018-09-12 12:27 | HOSPPROG ---
Hospitalist Progress Note Assessment/Plan: 68 yo M with PMH of HTN, DM2, obesity, CAD presenting for L2-S1 spinal fusion revision. First encounter, chart reviewed. *back pain - L2-S1 spinal fusion revision -PT/OT -doing well today, ambulating without difficulty, pain is well managed *DM2 -stable, on Lantus, Metformin *CAD: -hx of several stents -asa and statin, Effient *HTN -bp stable -Imdur, diltiazem and Lasix. * HLD: -continue statin * hypoxia -stable on room air -has GARRICK *morbid obesity w a BMI of 39 *plan: likely dc in the a.m. per neurosurgery, doing well Subjective: Tyrel has no complaints, overall feeling well. Objective: Vital Signs Temp Pulse Resp BP Pulse Ox 36.6 C 72 18 134/62 H 90 L 09/12/18 07:26 09/12/18 08:49 09/12/18 07:26 09/12/18 08:50 09/12/18 07:26 Laboratory Results 09/11/18 04:26 09/11/18 04:26 09/11/18 09/12/18 09/13/18 05:59 05:59 05:59 Intake Total 4440 500 400 Output Total 2845 305 60 Balance 1595 195 340 - Physical Exam Constitutional: appears nourished, not in pain, obese Eyes: PERRL Ears, Nose, Mouth, Throat: hearing normal Cardiovascular: regular rate and rhythym Respiratory: no respiratory distress Gastrointestinal: normoactive bowel sounds, other (large and round) Skin: warm Musculoskeletal: generalized weakness Neurologic: AAOx3 Psychiatric: interacting appropriately ICD10 Worksheet Patient Problems: Problems Problem Status Onset Fusion of spine of lumbar region Acute
[2018-09-12] MEDS ORDERED: D50W 25 GM/50 ML SYR IVP PRN (13:21)
[2018-09-12] MEDS: GABAPENTIN 900 MG PO SCH (18:26)
[2018-09-12] MEDS: ACETAMINOPHEN 500 MG TAB PO SCH (21:45)
[2018-09-12] MEDS: FLUTICASONE NASAL 120 SPRAYS/16 GM MDI EACHNARE SCH (21:49)
[2018-09-12] MEDS: INSULIN GLARGINE 100 UNITS/ML UNIT SC SCH (21:51)
[2018-09-12] MEDS: diphenhydrAMINE 25 MG CAP PO SCH (21:51)
--- NOTE | 2018-09-13 07:20 | SOAPPROG ---
SOAP Progress Note Assessment/Plan: Assessment: 68 yo M POD #3 L5/S1 hardware removal, L2-S1 fusion with L2/3, L5/ S1 TLIF Plan: stable and doing well overall appreciate Hospitalists help with medical issues :) LSO brace when out of bed NASREEN x 1 post op x-rays look great please call with neuro changes dc home today 09/10/18 16:56 09/13/18 07:19 Subjective: back pain improving, no leg pain, no weakness. Objective: Vital Signs Temp Pulse Resp BP Pulse Ox 36.9 C 70 16 132/63 H 91 L 09/12/18 23:13 09/12/18 23:13 09/12/18 23:13 09/12/18 23:13 09/12/18 23:13 Laboratory Results 09/11/18 04:26 09/11/18 04:26 09/12/18 09/13/18 09/14/18 05:59 05:59 05:59 Intake Total 500 2650 Output Total 305 155 Balance 195 2495 AAOX4, +FC PERRL, EOMI, no facial droop 5/5 + light touch C/D/I ICD10 Worksheet Patient Problems: Problems Problem Status Onset Fusion of spine of lumbar region Acute - ICD10 Problem Qualifiers (1) Fusion of spine of lumbar region
[2018-09-13] MEDS: INSULIN LISPRO 100 UNIT/ML SC SCH (08:04)
--- NOTE | 2018-09-13 08:57 | HOSPPROG ---
Hospitalist Progress Note Assessment/Plan: 68 yo M with PMH of HTN, DM2, obesity, CAD presenting for L2-S1 spinal fusion revision. *back pain - L2-S1 spinal fusion revision -PT/OT -doing well today, ambulating without difficulty, pain is well managed *DM2 -stable, on Lantus, Metformin *CAD: -hx of several stents -asa and statin, Effient *HTN -bp stable -Imdur, diltiazem and Lasix. * HLD: -continue statin * hypoxia -stable on room air -has GARRICK *morbid obesity w a BMI of 39 *plan: dc today Subjective: Tyrel couldn't sleep well last night, but is feeling fine. Objective: Vital Signs Temp Pulse Resp BP Pulse Ox 36.6 C 68 18 113/58 L 92 09/13/18 07:49 09/13/18 07:49 09/13/18 07:49 09/13/18 07:49 09/13/18 07:49 Laboratory Results 09/11/18 04:26 09/11/18 04:26 09/12/18 09/13/18 09/14/18 05:59 05:59 05:59 Intake Total 500 2650 Output Total 305 155 Balance 195 2495 - Physical Exam Constitutional: no apparent distress, obese Eyes: PERRL Ears, Nose, Mouth, Throat: hearing normal Cardiovascular: regular rate and rhythym Respiratory: no respiratory distress, reduced air movement Gastrointestinal: normoactive bowel sounds, other (large and round) Skin: warm, other (back dressing in place, dry, no drainage, danielle drain ) Musculoskeletal: generalized weakness Neurologic: AAOx3 Psychiatric: interacting appropriately ICD10 Worksheet Patient Problems: Problems Problem Status Onset Fusion of spine of lumbar region Acute
[2018-09-13] MEDS ORDERED: ENOXAPARIN 40 MG/0.4 ML SYR SC SCH (09:00)
[2018-09-13 09:21] VITALS: BP 134/76
[2018-09-13] MEDS: ATORVASTATIN CALCIUM 40 MG TAB PO SCH (09:25)
[2018-09-13] MEDS: CHLORTHALIDONE 25 MG TAB PO SCH (09:25)
[2018-09-13] MEDS: ISOSORBIDE MONONITRATE 30 MG TAB.SR PO SCH (09:25)
[2018-09-13] MEDS: tiZANidine HCL 2 MG TAB PO SCH (09:26)
[2018-09-13] MEDS: SUCRALFATE 1 GM TAB PO SCH (09:27)
[2018-09-13] MEDS: RANOLAZINE 500 MG TAB.ER PO SCH (09:27)
[2018-09-13] MEDS: MONTELUKAST SODIUM 10 MG TAB PO SCH (09:27)
[2018-09-13] MEDS: CETIRIZINE 10 MG TAB PO SCH (09:27)
[2018-09-13] MEDS: metFORMIN HCL 500 MG TAB PO SCH (09:28)
[2018-09-13] MEDS: FUROSEMIDE 40 MG TAB PO SCH (09:29)
[2018-09-13] MEDS: ASPIRIN 81 MG CHEWABLE TAB PO SCH (09:29)
[2018-09-13] MEDS: PANTOPRAZOLE SODIUM 40 MG TAB PO SCH (09:29)
[2018-09-13] MEDS: DILTIAZEM XR 240 MG CAP PO SCH (09:29)
[2018-09-13] MEDS: CARBOXYMETHYLCELLULOSE 1% 0.4 ML DROPERETTE EACHEYE SCH (09:30)
[2018-09-13] MEDS: SENNOSIDES/DOCUSATE SODIUM TAB PO SCH (09:43)
[2018-09-13] MEDS: POLYETHYLENE GLYCOL 3350 17 GM PKT PO SCH (09:43)
[2018-09-13] MEDS: ENOXAPARIN 40 MG/0.4 ML SYR SC SCH (10:05)
[2018-09-13] MEDS: oxyCODONE IR 5 MG TAB PO PRN (11:34)
--- NOTE | 2018-09-13 11:40 | ASMTLACE ---
LACE Length of stay for Answers: 4-6 days current admission Acuity / Level of Answers: Yes Care: Did the patient have an inpatient admission? Comorbidities - select Answers: Cerebrovascular disease all that apply (CVA, TIA, aneurysms, vasc ular dementia) Coronary Artery Disease Diabetes (uncontrolled or controlled) Opioid dependence / Chronic pain Previous myocardial infarction Other Notes: HTN # of Emergency department Answers: 0 visits in the last 6 months Score: 17 Date Signed: 09/13/2018 11:39 AM Electronically Signed By:KRISETN Foreman
--- NOTE | 2018-09-13 14:22 | ASMTCMCOM ---
CM Note CM Note Notes: Pt medically stable for d/c home with family support, no CM d/c needs identified. Date Signed: 09/13/2018 02:21 PM Electronically Signed By:KRISTEN Foreman
== END 2018-09-13 12:51 | disposition home or self-care (01) | DRG 454 ==
LOC: F3N 06:41
PROVIDERS: ADMIT Neurological Surgery; ATTEND Neurological Surgery
PROC: 0SP30JZ Removal of Synthetic Substitute from Lumbosacral Joint, Open Approach (ICD-10-PCS; principal; 2018-09-10 08:45)
PROC: 0ST40ZZ Resection of Lumbosacral Disc, Open Approach (ICD-10-PCS; principal; 2018-09-10 08:45)
PROC: 0SG30AJ Fusion of Lumbosacral Joint with Interbody Fusion Device, Posterior Approach, Anterior Column, Open Approach (ICD-10-PCS; principal; 2018-09-10 08:45)
PROC: 8E0WXBF Computer Assisted Procedure of Trunk Region, With Fluoroscopy (ICD-10-PCS; principal; 2018-09-10 08:45)
PROC: 0SG0071 Fusion of Lumbar Vertebral Joint with Autologous Tissue Substitute, Posterior Approach, Posterior Column, Open Approach (ICD-10-PCS; principal; 2018-09-10 08:45)
PROC: 0SG00AJ Fusion of Lumbar Vertebral Joint with Interbody Fusion Device, Posterior Approach, Anterior Column, Open Approach (ICD-10-PCS; principal; 2018-09-10 08:45)
PROC: 0ST20ZZ Resection of Lumbar Vertebral Disc, Open Approach (ICD-10-PCS; principal; 2018-09-10 08:45)
PROC: 0SP00JZ Removal of Synthetic Substitute from Lumbar Vertebral Joint, Open Approach (ICD-10-PCS; principal; 2018-09-10 08:45)
PROC: 4A1004G Monitoring of Central Nervous Electrical Activity, Intraoperative, Open Approach (ICD-10-PCS; principal; 2018-09-10 08:45)
PROC: 00NY0ZZ Release Lumbar Spinal Cord, Open Approach (ICD-10-PCS; principal; 2018-09-10 08:45)
PROC: 0SG3071 Fusion of Lumbosacral Joint with Autologous Tissue Substitute, Posterior Approach, Posterior Column, Open Approach (ICD-10-PCS; principal; 2018-09-10 08:45)
DX: M96.0 Pseudarthrosis after fusion or arthrodesis (principal); T84.296A Other mechanical complication of internal fixation device of vertebrae, initial encounter; E66.2 Morbid (severe) obesity with alveolar hypoventilation; Z68.39 Body mass index [BMI] 39.0-39.9, adult; M51.16 Intervertebral disc disorders with radiculopathy, lumbar region; M48.061 Spinal stenosis, lumbar region without neurogenic claudication; I25.10 Atherosclerotic heart disease of native coronary artery without angina pectoris; E11.9 Type 2 diabetes mellitus without complications; I10 Essential (primary) hypertension; E78.5 Hyperlipidemia, unspecified; R09.02 Hypoxemia; I25.2 Old myocardial infarction; Z86.73 Personal history of transient ischemic attack (TIA), and cerebral infarction without residual deficits; K21.9 Gastro-esophageal reflux disease without esophagitis; Z95.5 Presence of coronary angioplasty implant and graft
CPT/HCPCS: 82947-QW; 97116-GP; 97162-GP; 97166-GO; 97530-GO; 97530-GP; 97535-GO; C1713; C1762; J0171; J0690; J1170; J1650; J1815; J2274; J2405; J2704; J2765; J2780; J3010; J3360; J3475; P9041

== ENCOUNTER 2018-10-09 09:32 | Day surgery (SDC) | payer OTHER ==
[2018-10-09 11:40] LABS: PLATELET COUNT 281 10^3/uL (150-400)
[2018-10-09 11:50] LABS: INR 1.07 (0.83-1.16); PROTIME(PATIENT) 13.5 SEC (12.0-15.0)
[2018-10-09] MEDS ORDERED: MIDAZOLAM 2 MG/2 ML VIAL IVP ONE (12:12)
--- NOTE | 2018-10-09 12:12 | PDANEPAE ---
ANE History of Present Illness lumbar drain placement ANE Past Medical History - Cardiovascular History Hx Hypertension: Yes Hx Arrhythmias: No Hx Chest Pain: No Hx Coronary Artery / Peripheral Vascular Disease: Yes Hx CHF / Valvular Disease: No Hx Palpitations: No Cardiovascular History Comment: STENTS X2 2016. NC 2016 - Pulmonary History Hx COPD: No Hx Asthma/Reactive Airway Disease: No Hx Recent Upper Respiratory Infection: No Hx Oxygen in Use at Home: No Hx Sleep Apnea: No Sleep Apnea Screening Result - Last Documented: Positive - Neurologic History Hx Cerebrovascular Accident: Yes Hx Seizures: No Hx Dementia: No Neurologic History Comment: HEAT INDUCED STROKE 2011 - Endocrine History Hx Diabetes: Yes Endocrine History Comment: NIDDM - Renal History Hx Renal Disorders: No - Liver History Hx Hepatic Disorders: No - Neurological & Psychiatric Hx Hx Neurological and Psychiatric Disorders: No - Cancer History Hx Cancer: Yes Cancer History Comment: SKIN - Congenital Disorder History Hx Congenital Disorders: No - GI History Hx Gastrointestinal Disorders: Yes Gastrointestinal History Comment: GERD - Other Health History Other Health History: DJD. MILD GLAUCOMA - Chronic Pain History Chronic Pain: Yes (LOWER BACK) - Surgical History Prior Surgeries: LUMBAR FUSION X3 MOST RECENT 2013. RT TOTAL KNEE. RT KNEE ACL. RT THUMB RECONSTRUCTION. RT WRIST/ELBOW. RT SHLDR RTC. LT SHLDR RECONSTRLUCTION. RAEANN. UMBILICAL HERNIA. TONSILLECTOMY ANE Review of Systems Review of systems is: negative Review of Systems: - Exercise capacity METS (RN): 4 METS ANE Patient History - Allergies Allergies/Adverse Reactions: adhesive Allergy (Verified 08/16/18 11:18) Iodinated Contrast- Oral and IV Dye Allergy (Verified 08/16/18 11:18) BLISTERS povidone-iodine [From Betadine] Allergy (Verified 08/16/18 11:18) BLISTERS soap [From Betadine] Allergy (Verified 08/16/18 11:18) BLISTERS - Home Medications Home medications: home medication list seen and reviewed Home Medications: Acetaminophen [Tylenol ES 500 mg (*)] 1,500 mg PO HS 08/16/18 [Last Taken ] Atorvastatin Calcium [Lipitor 40 mg (*)] 40 mg PO DAILY 08/16/18 [Last Taken ] Carboxymethylcellulose 1% [Refresh Celluvisc (*)] 1 drop EACHEYE DAILY 08/16/18 [Last Taken 09/03/18] Chlorthalidone [Chlorthalidone 25 mg (*)] 25 mg PO DAILY 08/16/18 [Last Taken ] Diltiazem HCl [Cartia XT 240mg] 240 mg PO DAILY 08/16/18 [Last Taken 09/10/18] Fluticasone Nasal [Flonase Nasal [place]] 2 sprays NASAL HS 08/16/18 [Last Taken 09/09/18] Furosemide [Lasix 40 MG (*)] 40 mg PO DAILY 08/16/18 [Last Taken 09/08/18] Herbals/Supplements -Info Only 1 ea PO DAILY 08/16/18 [Last Taken 09/03/18] Insulin Glargine [Lantus] 60 unit SC HS 08/16/18 [Last Taken 09/09/18] Insulin Lispro [Humalog] 45 unit SQ TIDMEAL 08/16/18 [Last Taken 09/09/18] Isosorbide Mononitrate [Imdur 30 mg (*)] 90 mg PO DAILY 08/16/18 [Last Taken ] Loratadine 10 mg PO DAILY 08/16/18 [Last Taken 09/08/18] Montelukast Sodium [Singulair 10 mg (*)] 10 mg PO DAILY 08/16/18 [Last Taken ] [place]-3 Fatty Acids [Fish Oil 1000 mg (*)] 1,000 mg PO DAILY 08/16/18 [Last Taken 09/03/18] Pantoprazole Sodium [Protonix 40mg (*)] 40 mg PO DAILY 08/16/18 [Last Taken 05/14] Prasugrel HCl [Effient 10mg (*)] 10 mg PO DAILY 08/16/18 [Last Taken 09/03/18] Ranolazine [Ranexa] 500 mg PO BID 08/16/18 [Last Taken 09/10/18] Sucralfate [Carafate 1 GM (*)] 1 gm PO TID 08/16/18 [Last Taken 09/10/18] diphenhydrAMINE [Benadryl 25 MG (*)] 75 mg PO HS 08/16/18 [Last Taken 09/09/18] metFORMIN HCL [Glucophage 500 mg (*)] 500 mg PO BIDMEAL 08/16/18 [Last Taken ] tiZANidine HCL [Zanaflex 2MG (*)] 2 mg PO DAILY 08/16/18 [Last Taken 09/08/18] Aspirin 81mg (*) 81 mg PO DAILY 10/05/18 [Last Taken Unknown] Gralise 1,800 mg PO DAILY 10/05/18 [Last Taken Unknown] - NPO status NPO Status: no food or drink >8 hours - Anes Hx Anes Hx: no prior problems - Smoking Hx Smoking Status: Former smoker - Family Anes Hx Family Anes Hx: none ANE Labs/Vital Signs - Labs Result Diagrams: 10/09/18 11:25 - Vital Signs Vital Signs: reviewed preoperatively; see RN documention for details Blood Pressure: 124/56 Heart Rate: 66 Respiratory Rate: 20 O2 Sat (%): 94 Height: 182.88 cm Weight: 131.54 kg ANE Physical Exam - Airway Neck exam: FROM Mallampati Score: Class 3 Mouth exam: normal dental/mouth exam - Pulmonary Pulmonary: no respiratory distress - Cardiovascular Cardiovascular: regular rate and rhythym - ASA Status ASA Status: III ANE Anesthesia Plan Anesthesia Plan: MAC Total IV Anesthesia: Yes
[2018-10-09] MEDS ORDERED: MIDAZOLAM 2 MG/2 ML VIAL ONE (12:24)
[2018-10-09] MEDS ORDERED: fentaNYL 100 MCG/2 ML INJ ONE (12:24)
[2018-10-09] MEDS ORDERED: ceFAZolin 1 GM VIAL ONE ×2 (12:43→12:59)
[2018-10-09] MEDS ORDERED: ONDANSETRON 4 MG/2 ML VIAL IVP PRN ×2 (13:01→13:21)
[2018-10-09] MEDS ORDERED: ACETAMINOPHEN 325 MG TAB PO PRN (13:01)
[2018-10-09] MEDS ORDERED: IOPAMIDOL (ISOVUE-300) 100 ML BTL ONE (13:01)
[2018-10-09] MEDS ORDERED: LABETALOL HCL 5 MG/ML 20 ML MDV IVP PRN (13:21)
[2018-10-09] MEDS ORDERED: DEXAMETHASONE 4 MG/ML VIAL IVP PRN (13:21)
[2018-10-09] MEDS ORDERED: HYDROmorphONE/DILAUDID 1 MG/ML INJ IVP PRN (13:21)
[2018-10-09] MEDS ORDERED: HYDROCODONE/APAP 5/325 TAB PO PRN (13:21)
[2018-10-09] MEDS ORDERED: MEPERIDINE 25 MG/0.5 ML AMP IVP PRN (13:21)
[2018-10-09] MEDS ORDERED: fentaNYL 100 MCG/2 ML INJ IVP PRN (13:21)
[2018-10-09] MEDS ORDERED: oxyCODONE IR 5 MG TAB PO PRN (13:21)
[2018-10-09] MEDS ORDERED: NALOXONE HCL 0.4 MG/ML INJ IVP PRN (13:21)
--- NOTE | 2018-10-09 13:21 | POSTANESTH ---
Post Anesthetic Evaluation Cardiovascular Status: Similar to Pre-Op Cond Respiratory Status: Similar to Pre-op Cond. Level of Consciousness/Mental Status: Can Participate in Eval, Mildly Sleepy, Arousable Pain Control: Adequate, Prn Tx Ordered Nausea/Vomiting Control: Adequate, Prn Tx Ordered Complications Possibly Related to Anesthesia: None Noted
[2018-10-09 14:51] VITALS: BP 144/86
== END 2018-10-09 14:40 | disposition home or self-care (01) ==
LOC: FIMAGING 09:32
PROVIDERS: ATTEND Physician Assistant Surgical
PROC: 0J9730Z Drainage of Back Subcutaneous Tissue and Fascia with Drainage Device, Percutaneous Approach (ICD-10-PCS; principal; 2018-10-09 11:00)
DX: L76.34 Postprocedural seroma of skin and subcutaneous tissue following other procedure (principal); Z98.1 Arthrodesis status; I10 Essential (primary) hypertension; I25.10 Atherosclerotic heart disease of native coronary artery without angina pectoris; I25.2 Old myocardial infarction; Z95.5 Presence of coronary angioplasty implant and graft; E11.9 Type 2 diabetes mellitus without complications; H40.9 Unspecified glaucoma; Z86.73 Personal history of transient ischemic attack (TIA), and cerebral infarction without residual deficits; Z96.651 Presence of right artificial knee joint
CPT/HCPCS: 10030; 75989; C1729; C1769; J0690; J2250; J3010; Q9967

== ENCOUNTER 2018-10-12 21:51 | Emergency (ER) | payer OTHER ==
--- NOTE | 2018-10-12 22:02 | EDPHY ---
H & P Stated Complaint: post op complication-drain pulled out Time Seen by Provider: 10/12/18 22:01 HPI/ROS: HPI CHIEF COMPLAINT: Pulled lumbar drain out. HISTORY OF PRESENT ILLNESS: Patient is a 68-year-old male, presents emergency room after the lumbar drain that is on a NASREEN drain hang out of his left lumbar region got caught on the seatbelt and the NASREEN drain fell off. The green tubing that inserts into the attachment is broken and NASREEN drain is disconnected. He denies any significant pain. Past Medical History: Lumbar abscess. Past Surgical History: Lumbar fusion, recent ultrasound-guided lumbar drain Social History: Denies drugs alcohol tobacco. Family History: Noncontributory ROS REVIEW OF SYSTEMS: 10 Systems were reviewed and negative with the exception of the elements mentioned in the history of present illness. Exam Constitutional triage nursing summary reviewed, vital signs reviewed, awake/ alert. Eyes normal conjunctivae and sclera, EOMI, PERRLA. HENT normal inspection, atraumatic, moist mucus membranes, no epistaxis, neck supple/ no meningismus, no raccoon eyes. Respiratory clear to auscultation bilaterally, normal breath sounds, no respiratory distress, no wheezing. Cardiovascular rate normal, regular rhythm, no murmur, no edema, distal pulses normal. Gastrointestinal soft, non-tender, no rebound, no guarding, normal bowel sounds, no distension, no pulsatile mass. Genitourinary no CVA tenderness. Musculoskeletal lumbar back: Midline incision, clean, dry intact, NASREEN drain it is disconnected due to fractured to the left paravertebral lumbar region. No signs of infection no midline vertebral tenderness, full range of motion, no calf swelling, no tenderness of extremities, no meningismus, good pulses, neurovascularly intact. Skin pink, warm, & dry, no rash, skin atraumatic. Neurologic awake, alert and oriented x 3, AAOx3, moves all 4 extremities equally, motor intact, sensory intact, CN II-XII intact, normal cerebellar, normal vision, normal speech. Psychiatric normal mood/affect. Heme/Lymph/Immune no lymphadenopathy. Differential Diagnosis: Includes but is not limited to in a particular order lumbar drain fracture tube, NASREEN tube malfunction Medical Decision Making: Spoke with Dr. Keane. She will come and see the patient in exchanged the NASREEN drain. Re-evaluation: No drain was placed by intervention Radiology by Dr. Keane. Post placement of this drained 2 g of Ancef were given in the emergency room. Routine labs were obtain. Patient here with no fever and stable vital signs would like to go home. He denies any significant back pain. We discussed return precautions he understands return to the emergency room if worsening back pain, fever, vomiting, not doing well Source: Patient - Personal History Current Tetanus Diphtheria and Acellular Pertussis (TDAP): Yes - Medical/Surgical History Hx Asthma: No Hx Chronic Respiratory Disease: No Hx Diabetes: Yes Hx Cardiac Disease: Yes Hx Renal Disease: No Hx Cirrhosis: No Hx Alcoholism: No Hx HIV/AIDS: No Hx Splenectomy or Spleen Trauma: No Other PMH: Coronary Artery Disease with multiple stents (2013), Hypertension, Hyperlipidemia, Diabetes. Surgical History: Spinal Fusion Revision (09/12/2018) - Social History Smoking Status: Former smoker Constitutional: Initial Vital Signs Temperature (C) 36.8 C 10/12/18 21:55 Heart Rate 80 10/12/18 21:55 Respiratory Rate 16 10/12/18 21:55 Blood Pressure 146/65 H 10/12/18 21:55 O2 Sat (%) 94 10/12/18 21:55 O2 Delivery Mode Room Air Allergies/Adverse Reactions: adhesive Allergy (Verified 10/12/18 21:53) Iodinated Contrast- Oral and IV Dye Allergy (Verified 10/12/18 21:53) BLISTERS povidone-iodine [From Betadine] Allergy (Verified 10/12/18 21:53) BLISTERS soap [From Betadine] Allergy (Verified 10/12/18 21:53) BLISTERS Home Medications: Medication Instructions Recorded Acetaminophen [Tylenol ES 500 mg 1,500 mg PO HS 08/16/18 (*)] Atorvastatin Calcium [Lipitor 40 40 mg PO DAILY 08/16/18 mg (*)] Carboxymethylcellulose 1% [Refresh 1 drop EACHEYE DAILY 08/16/18 Celluvisc (*)] Chlorthalidone [Chlorthalidone 25 25 mg PO DAILY 08/16/18 mg (*)] Diltiazem HCl [Cartia XT 240mg] 240 mg PO DAILY 08/16/18 Fluticasone Nasal [Flonase Nasal 2 sprays NASAL HS 08/16/18 [place]] Furosemide [Lasix 40 MG (*)] 40 mg PO DAILY 08/16/18 Herbals/Supplements -Info Only 1 ea PO DAILY 08/16/18 Insulin Glargine [Lantus] 60 unit SC HS 08/16/18 Insulin Lispro [Humalog] 45 unit SQ TIDMEAL 08/16/18 Isosorbide Mononitrate [Imdur 30 90 mg PO DAILY 08/16/18 mg (*)] Loratadine 10 mg PO DAILY 08/16/18 Montelukast Sodium [Singulair 10 10 mg PO DAILY 08/16/18 mg (*)] [place]-3 Fatty Acids [Fish Oil 1000 1,000 mg PO DAILY 08/16/18 mg (*)] Pantoprazole Sodium [Protonix 40mg 40 mg PO DAILY 08/16/18 (*)] Prasugrel HCl [Effient 10mg (*)] 10 mg PO DAILY 08/16/18 Ranolazine [Ranexa] 500 mg PO BID 08/16/18 Sucralfate [Carafate 1 GM (*)] 1 gm PO TID 08/16/18 diphenhydrAMINE [Benadryl 25 MG 75 mg PO HS 08/16/18 (*)] metFORMIN HCL [Glucophage 500 mg 500 mg PO BIDMEAL 08/16/18 (*)] tiZANidine HCL [Zanaflex 2MG (*)] 2 mg PO DAILY 08/16/18 Methocarbamol [Robaxin 750 mg (*)] 750 mg PO QID PRN tab 09/13/18 oxyCODONE IR [Oxycodone Ir (*)] 5 - 10 mg PO Q4H PRN tab 09/13/18 Aspirin 81mg (*) 81 mg PO DAILY 10/05/18 Gralise 1,800 mg PO DAILY 10/05/18 Medical Decision Making - Data Points Laboratory Results: Laboratory Results 10/13/18 00:35 10/13/18 00:35 10/13/18 10/13/18 00:35 00:35 WBC 9.68 10^3/uL H 10^3/uL (3.80-9.50) RBC 4.60 10^6/uL 10^6/uL (4.40-6.38) Hgb 14.3 g/dL g/dL (13.7-17.5) Hct 42.9 % % (40.0-51.0) MCV 93.3 fL fL (81.5-99.8) MCH 31.1 pg pg (27.9-34.1) MCHC 33.3 g/dL g/dL (32.4-36.7) RDW 13.5 % % (11.5-15.2) Plt Count 255 10^3/uL 10^3/uL (150-400) MPV 9.3 fL fL (8.7-11.7) Neut % (Auto) 48.4 % % (39.3-74.2) Lymph % (Auto) 33.1 % % (15.0-45.0) [place] % (Auto) 12.6 % % (4.5-13.0) Eos % (Auto) 5.1 % % (0.6-7.6) Baso % (Auto) 0.6 % % (0.3-1.7) Nucleat RBC Rel Count 0.0 % % (0.0-0.2) Absolute Neuts (auto) 4.69 10^3/uL 10^3/uL (1.70-6.50) Absolute Lymphs (auto) 3.20 10^3/uL H 10^3/uL (1.00-3.00) Absolute Monos (auto) 1.22 10^3/uL H 10^3/uL (0.30-0.80) Absolute Eos (auto) 0.49 10^3/uL H 10^3/uL (0.03-0.40) Absolute Basos (auto) 0.06 10^3/uL 10^3/uL (0.02-0.10) Absolute Nucleated RBC 0.00 10^3/uL 10^3/uL (0-0.01) Immature Gran % 0.2 % % (0.0-1.1) Immature Gran # 0.02 10^3/uL 10^3/uL (0.00-0.10) Sodium 141 mEq/L mEq/L (135-145) Potassium 3.7 mEq/L mEq/L (3.5-5.2) Chloride 103 mEq/L mEq/L (97-110) Carbon Dioxide 24 mEq/l mEq/l (22-31) Anion Gap 14 mEq/L mEq/L (6-14) BUN 19 mg/dL mg/dL (7-23) Creatinine 1.1 mg/dL mg/dL (0.7-1.3) Estimated GFR > 60 Glucose 98 mg/dL mg/dL (70-100) Calcium 9.3 mg/dL mg/dL (8.5-10.4) Medications Given: Discontinued Medications Cefazolin Sodium/Dextrose (Ancef) 100 mls @ 200 mls/hr IV EDNOW ONE PRN Reason: Protocol Stop: 10/13/18 00:06 Last Admin: 10/13/18 00:40 Dose: 100 mls Departure - Departure Disposition: Home, Routine, Self-Care Condition: Good Instructions: [facility] (ED) Referrals: PETER GARCIA [Other] - As per Instructions Micheline Keane MD [Medical Doctor] - As per Instructions
[2018-10-12] MEDS ORDERED: ceFAZolin 2 GM/DEXTROSE 100 ML IV ONE (23:37)
[2018-10-13] MEDS ORDERED: CEFAZOLIN 2 GM/DEXTROSE/100 ML BAG IV ONE (00:37)
[2018-10-13 00:43] LABS: PLATELET COUNT 255 10^3/uL (150-400)
[2018-10-13 01:13] VITALS: BP 132/72
== END 2018-10-13 01:22 | disposition home or self-care (01) ==
DX: T85.625A Displacement of other nervous system device, implant or graft, initial encounter (principal); Y75.2 Prosthetic and other implants, materials and neurological devices associated with adverse incidents
CPT/HCPCS: 96365; J0690

== ENCOUNTER 2018-10-26 13:08 | Inpatient (IN) | payer OTHER ==
[2018-10-26] MEDS ORDERED: NS 1,000 ML IV ONE (13:54)
[2018-10-26] MEDS ORDERED: ONDANSETRON 4 MG/2 ML VIAL IVP ONE (13:56)
[2018-10-26] MEDS ORDERED: ACETAMINOPHEN 500 MG TAB PO ONE (13:57)
[2018-10-26] MEDS ORDERED: methylPREDNISolone SOD SUCC 125 MG/2 ML VIAL IVP ONE (14:06)
--- NOTE | 2018-10-26 14:06 | EDPHY ---
H & P Stated Complaint: mechanical fall 10/25; left hip pain, fever today (has lumbar drain, dr. mix) Time Seen by Provider: 10/26/18 13:40 HPI/ROS: CHIEF COMPLAINT: Fever, weakness, fall yesterday HISTORY OF PRESENT ILLNESS: The patient is a 68-year-old man who is status post neuro surgery revision of L5-S1 fusion on September 10. His course was complicated by fluid collection that was drained by IR on October 09. Fluid collection cultures were negative. The patient is not on antibiotics. His states that yesterday he fell while getting out of a chair and landed on his hands and knees on the floor. She states that this occasionally happens because he has a history of carpal tunnel surgery and has a weak left wrist. Since the fall he has had mild pain in his left hip but has been able to ambulate. This morning he developed a fever of 100 degrees. They presented to Dr. Mix is office and the drain was examined in his back and felt to be in good placement and no sign of infection. There at the office however had a temperature of 104 degrees. They sent him here to rule out sepsis versus PE. The patient denies chest pain or shortness of breath or cough or recent illness. He is not tachycardic or hypoxic at triage. Denies leg pain or swelling. He has had nausea and a few episodes of dry heaving this morning. He denies abdominal tenderness. Normal bowel movements. Severity: Moderate Modifying factors: None REVIEW OF SYSTEMS: Constitutional: See HPI EENTM: denies: blurred vision, double vision, nose congestion Respiratory: denies: cough, shortness of breath Cardiac: denies: chest pain, irregular heart rate, lightheadedness, palpitations Gastrointestinal/Abdominal: See HPI Genitourinary: denies: dysuria, frequency, hematuria, pain Musculoskeletal: See HPI Skin: denies: lesions, rash, jaundice, bruising Neurological: denies: headache, numbness, paresthesia, tingling, dizziness, weakness Hematologic/Lymphatic: denies: blood clots, easy bleeding, easy bruising Immunologic/allergic: denies: HIV/AIDS, transplant 10 systems reviewed and negative except as noted EXAM: GENERAL: Well-appearing, obese in moderate distress. HEAD: Atraumatic, normocephalic. EYES: Pupils equal round and reactive to light, extraocular movements intact, sclera anicteric, conjunctiva are normal. ENT: TMs normal, nares patent, oropharynx clear without exudates. Moist mucous membranes. NECK: Normal range of motion, supple without lymphadenopathy or JVD. LUNGS: Breath sounds clear to auscultation bilaterally and equal. No wheezes rales or rhonchi. HEART: Regular rate and rhythm without murmurs, rubs or gallops. ABDOMEN: Soft, nontender, normoactive bowel sounds. No guarding, no rebound. No masses appreciated. BACK: See below, No CVA tenderness, no spinal tenderness, step-offs or deformities EXTREMITIES: Normal range of motion while in bed but pain and left hip with weight-bearing on left leg, no pitting or edema. No clubbing or cyanosis. NEUROLOGICAL: Cranial nerves II through XII grossly intact. Normal speech 5/ 5 strength, normal movement in all extremities, normal sensation, normal reflexes PSYCH: Normal mood, normal affect. SKIN: Wound clean and dry, no erythema, drain in place with serosanguineous fluid, Warm, dry, normal turgor, no visible rashes or lesions. Source: Patient Exam Limitations: No limitations - Personal History Current Tetanus/Diphtheria Vaccine: Yes Current Tetanus Diphtheria and Acellular Pertussis (TDAP): Yes - Medical/Surgical History Hx Asthma: No Hx Chronic Respiratory Disease: No Hx Diabetes: Yes Hx Cardiac Disease: Yes Hx Renal Disease: No Hx Cirrhosis: No Hx Alcoholism: No Hx HIV/AIDS: No Hx Splenectomy or Spleen Trauma: No Other PMH: Coronary Artery Disease with multiple stents (2013), Hypertension, Hyperlipidemia, Diabetes. Surgical History: Spinal Fusion Revision (09/12/2018) - Family History Significant Family History: No pertinent family hx - Social History Smoking Status: Former smoker Alcohol Use: Sober Drug Use: None Constitutional: Initial Vital Signs Temperature (C) 37.7 C 10/26/18 13:17 Heart Rate 85 10/26/18 13:17 Respiratory Rate 14 10/26/18 13:17 Blood Pressure 104/54 L 10/26/18 13:17 O2 Sat (%) 91 L 10/26/18 13:17 O2 Delivery Mode Nasal Cannula O2 (L/minute) 2 Allergies/Adverse Reactions: adhesive Allergy (Verified 10/12/18 21:53) Iodinated Contrast- Oral and IV Dye Allergy (Verified 10/12/18 21:53) BLISTERS povidone-iodine [From Betadine] Allergy (Verified 10/12/18 21:53) BLISTERS soap [From Betadine] Allergy (Verified 10/12/18 21:53) BLISTERS Home Medications: Medication Instructions Recorded Acetaminophen [Tylenol ES 500 mg 1,500 mg PO HS 08/16/18 (*)] Atorvastatin Calcium [Lipitor 40 40 mg PO DAILY 08/16/18 mg (*)] Carboxymethylcellulose 1% [Refresh 1 drop EACHEYE DAILY 08/16/18 Celluvisc (*)] Chlorthalidone [Chlorthalidone 25 25 mg PO DAILY 08/16/18 mg (*)] Diltiazem HCl [Cartia XT 240mg] 240 mg PO DAILY 08/16/18 Fluticasone Nasal [Flonase Nasal 2 sprays NASAL HS 08/16/18 [place]] Furosemide [Lasix 40 MG (*)] 40 mg PO DAILY 08/16/18 Herbals/Supplements -Info Only 1 ea PO DAILY 08/16/18 Insulin Glargine [Lantus] 60 unit SC HS 08/16/18 Insulin Lispro [Humalog] 45 unit SQ TIDMEAL 08/16/18 Isosorbide Mononitrate [Imdur 30 90 mg PO DAILY 08/16/18 mg (*)] Loratadine 10 mg PO DAILY 08/16/18 Montelukast Sodium [Singulair 10 10 mg PO DAILY 08/16/18 mg (*)] [place]-3 Fatty Acids [Fish Oil 1000 1,000 mg PO DAILY 08/16/18 mg (*)] Pantoprazole Sodium [Protonix 40mg 40 mg PO DAILY 08/16/18 (*)] Prasugrel HCl [Effient 10mg (*)] 10 mg PO DAILY 08/16/18 Ranolazine [Ranexa] 500 mg PO BID 08/16/18 Sucralfate [Carafate 1 GM (*)] 1 gm PO TID 08/16/18 diphenhydrAMINE [Benadryl 25 MG 75 mg PO HS 08/16/18 (*)] metFORMIN HCL [Glucophage 500 mg 500 mg PO BIDMEAL 08/16/18 (*)] tiZANidine HCL [Zanaflex 2MG (*)] 2 mg PO DAILY 08/16/18 Gralise 1,800 mg PO DAILY 10/05/18 Aspirin EC [Aspirin EC 81 mg (*)] 81 mg PO DAILY 10/26/18 Lisinopril [Zestril 40 mg (*)] 40 mg PO DAILY 10/26/18 Potassium Chloride [Klor-Con 10] 10 meq PO BID 10/26/18 Ranitidine HCl 150 mg PO DAILY PRN 10/26/18 Medical Decision Making - Diagnostics EKG Interpretation: An EKG obtained and was read and documented in trace view. Please see trace view for full reading and report. Sinus rhythm, no acute ischemic changes or signs of right heart strain Imaging Results: Imaging Impressions Chest/Thorax CTA 10/26/18 13:55 Impression: 1. No visible pulmonary embolus, with slightly limited visualization of segmental and subsegmental vessels due to bolus timing. 2. No definite etiology for the patient's fever, with apparent decrease in size of a previously drained paraspinal/subcutaneous fluid collection, with drain overlying a decompressed fluid collection in the midline. 3. 4 mm right lower lobe nodule, of doubtful clinical significance. If the patient is a smoker or high risk, follow-up CT in one year would be considered optional per Fleischner Society guidelines. 4. Coronary artery atherosclerosis. 5. Mild bronchitis. 6. Additional findings, as above. Findings discussed with Lexa Santos M.D., on October 26, 2018 at 1623. E:NW/amm Abdomen CT 10/26/18 13:56 Impression: 1. No visible pulmonary embolus, with slightly limited visualization of segmental and subsegmental vessels due to bolus timing. 2. No definite etiology for the patient's fever, with apparent decrease in size of a previously drained paraspinal/subcutaneous fluid collection, with drain overlying a decompressed fluid collection in the midline. 3. 4 mm right lower lobe nodule, of doubtful clinical significance. If the patient is a smoker or high risk, follow-up CT in one year would be considered optional per Fleischner Society guidelines. 4. Coronary artery atherosclerosis. 5. Mild bronchitis. 6. Additional findings, as above. Findings discussed with Lexa Santos M.D., on October 26, 2018 at 1623. E:NW/amm Imaging: Discussed imaging studies w/ orthopedically impaired teacher Radiologist ED Course/Re-evaluation: Patient has a questionable iodine allergy from several decades ago. He states that he gave him trouble breathing. In the past he has done well with premedication. Will premedicate. Currently stable. 4:35 p.m. The patient continues to feel weak and uncomfortable. I discussed the case with Cayetano Gutiérrez for neurosurgery. They will consult. They request that we send a fluid from the drain as well for cultures. I do not have any obvious source at this time for his fever and elevated lactate. He has been given Rocephin. Will admit to the hospitalist service. 4:40 p.m. discussed the case with hospitalist who will admit. Differential Diagnosis: Partial list of the Differential diagnosis considered include but were not limited to; pneumonia, urinary tract infection, sepsis, wound infection and although unlikely based on the history and physical exam, I also considered meningitis, endocarditis, colitis. Critical Care Time: Critical care time spent by me, Dr. Santos exclusive with this patient was 35 minutes, exclusive of the PA time exclusive of procedures. The organ system that was at risk was cardiovascular and I gave IV fluids, antibiotics, consultation and admission to prevent worsening of the patient's condition - Data Points Laboratory Results: Laboratory Results 10/26/18 13:50 10/26/18 13:50 10/26/18 10/26/18 10/26/18 14:45 14:05 13:50 WBC RBC Hgb Hct MCV MCH MCHC RDW Plt Count MPV Neut % (Auto) Lymph % (Auto) Person % (Auto) Eos % (Auto) Baso % (Auto) Nucleat RBC Rel Count Absolute Neuts (auto) Absolute Lymphs (auto) Absolute Monos (auto) Absolute Eos (auto) Absolute Basos (auto) Absolute Nucleated RBC Immature Gran % Immature Gran # RBC/WBC/PLT Morphology Platelet Estimate PT INR APTT VBG Lactic Acid Sodium Potassium Chloride Carbon Dioxide Anion Gap BUN Creatinine Estimated GFR Glucose Calcium Total Bilirubin Conjugated Bilirubin Unconjugated Bilirubin AST ALT Alkaline Phosphatase POC Troponin I 0.00 ng/mL ng/mL (0.00-0.08) Total Protein Albumin Lipase Procalcitonin Pending Urine Color YELLOW Urine Appearance CLEAR Urine pH 5.0 (5.0-7.5) Ur Specific Minto 1.010 (1.002-1.030) Urine Protein NEGATIVE (NEGATIVE) Urine Ketones NEGATIVE (NEGATIVE) Urine Blood NEGATIVE (NEGATIVE) Urine Nitrate NEGATIVE (NEGATIVE) Urine Bilirubin NEGATIVE (NEGATIVE) Urine Urobilinogen NEGATIVE EU EU (0.2-1.0) Ur Leukocyte Esterase NEGATIVE (NEGATIVE) Urine RBC NONE SEEN /hpf /hpf (0-3) Urine WBC 1-3 /hpf /hpf (0-3) Ur Epithelial Cells NONE SEEN /lpf /lpf (NONE-1+) Hyaline Casts 5-15 /lpf /lpf (0-1) Urine Mucus TRACE /lpf /lpf (NONE-1+) Urine Glucose NEGATIVE (NEGATIVE) 10/26/18 10/26/18 10/26/18 13:50 13:50 13:50 WBC 14.11 10^3/uL H 10^3/uL (3.80-9.50) RBC 4.69 10^6/uL 10^6/uL (4.40-6.38) Hgb 14.1 g/dL g/dL (13.7-17.5) Hct 42.1 % % (40.0-51.0) MCV 89.8 fL fL (81.5-99.8) MCH 30.1 pg pg (27.9-34.1) MCHC 33.5 g/dL g/dL (32.4-36.7) RDW 13.6 % % (11.5-15.2) Plt Count 305 10^3/uL 10^3/uL (150-400) MPV 9.5 fL fL (8.7-11.7) Neut % (Auto) 73.2 % % (39.3-74.2) Lymph % (Auto) 13.7 % L % (15.0-45.0) Person % (Auto) 12.3 % % (4.5-13.0) Eos % (Auto) 0.3 % L % (0.6-7.6) Baso % (Auto) 0.2 % L % (0.3-1.7) Nucleat RBC Rel Count 0.0 % % (0.0-0.2) Absolute Neuts (auto) 10.33 10^3/uL H 10^3/uL (1.70-6.50) Absolute Lymphs (auto) 1.93 10^3/uL 10^3/uL (1.00-3.00) Absolute Monos (auto) 1.74 10^3/uL H 10^3/uL (0.30-0.80) Absolute Eos (auto) 0.04 10^3/uL 10^3/uL (0.03-0.40) Absolute Basos (auto) 0.03 10^3/uL 10^3/uL (0.02-0.10) Absolute Nucleated RBC 0.00 10^3/uL 10^3/uL (0-0.01) Immature Gran % 0.3 % % (0.0-1.1) Immature Gran # 0.04 10^3/uL 10^3/uL (0.00-0.10) RBC/WBC/PLT Morphology TNP Platelet Estimate TNP PT 14.1 SEC SEC (12.0-15.0) INR 1.14 (0.83-1.16) APTT 32.0 SEC SEC (23.0-38.0) VBG Lactic Acid 2.3 mmol/L H mmol/L (0.7-2.1) Sodium Potassium Chloride Carbon Dioxide Anion Gap BUN Creatinine Estimated GFR Glucose Calcium Total Bilirubin Conjugated Bilirubin Unconjugated Bilirubin AST ALT Alkaline Phosphatase POC Troponin I Total Protein Albumin Lipase Procalcitonin Urine Color Urine Appearance Urine pH Ur Specific Minto Urine Protein Urine Ketones Urine Blood Urine Nitrate Urine Bilirubin Urine Urobilinogen Ur Leukocyte Esterase Urine RBC Urine WBC Ur Epithelial Cells Hyaline Casts Urine Mucus Urine Glucose 10/26/18 13:50 WBC RBC Hgb Hct MCV MCH MCHC RDW Plt Count MPV Neut % (Auto) Lymph % (Auto) Person % (Auto) Eos % (Auto) Baso % (Auto) Nucleat RBC Rel Count Absolute Neuts (auto) Absolute Lymphs (auto) Absolute Monos (auto) Absolute Eos (auto) Absolute Basos (auto) Absolute Nucleated RBC Immature Gran % Immature Gran # RBC/WBC/PLT Morphology Platelet Estimate PT INR APTT VBG Lactic Acid Sodium 136 mEq/L mEq/L (135-145) Potassium 3.8 mEq/L mEq/L (3.5-5.2) Chloride 100 mEq/L mEq/L (97-110) Carbon Dioxide 24 mEq/l mEq/l (22-31) Anion Gap 12 mEq/L mEq/L (6-14) BUN 15 mg/dL mg/dL (7-23) Creatinine 1.0 mg/dL mg/dL (0.7-1.3) Estimated GFR > 60 Glucose 84 mg/dL mg/dL (70-100) Calcium 9.5 mg/dL mg/dL (8.5-10.4) Total Bilirubin 1.7 mg/dL H mg/dL (0.1-1.4) Conjugated Bilirubin 0.2 mg/dL mg/dL (0.0-0.5) Unconjugated Bilirubin 1.5 mg/dL H mg/dL (0.0-1.1) AST 17 IU/L IU/L (17-59) ALT 30 IU/L IU/L (21-72) Alkaline Phosphatase 110 IU/L IU/L (38-126) POC Troponin I Total Protein 7.1 g/dL g/dL (6.3-8.2) Albumin 4.1 g/dL g/dL (3.5-5.0) Lipase 21 IU/L L IU/L (23-300) Procalcitonin Urine Color Urine Appearance Urine pH Ur Specific Minto Urine Protein Urine Ketones Urine Blood Urine Nitrate Urine Bilirubin Urine Urobilinogen Ur Leukocyte Esterase Urine RBC Urine WBC Ur Epithelial Cells Hyaline Casts Urine Mucus Urine Glucose Medications Given: Sodium Chloride (Ns) 3,800 mls @ 633.3333 mls/hr 30 ml/kg infuse over 6 hr ( 3800 ml) IV EDNOW ONE PRN Reason: Protocol Stop: 10/26/18 20:11 Last Admin: 10/26/18 14:30 Dose: 2,800 mls Discontinued Medications Acetaminophen (Tylenol) 1,000 mg PO EDNOW ONE Stop: 10/26/18 13:58 Last Admin: 10/26/18 14:14 Dose: 1,000 mg Diphenhydramine HCl (Benadryl Injection) 50 mg IVP EDNOW ONE Stop: 10/26/18 14:07 Last Admin: 10/26/18 14:17 Dose: 50 mg Sodium Chloride (Ns) 1,000 mls @ 0 mls/hr IV EDNOW ONE; Wide Open PRN Reason: Protocol Stop: 10/26/18 13:55 Last Admin: 10/26/18 14:09 Dose: 1,000 mls Ceftriaxone Sodium/Dextrose (Rocephin 1 Gm (Premix)) 50 mls @ 100 mls/hr IV EDNOW ONE PRN Reason: Protocol Stop: 10/26/18 14:41 Last Admin: 10/26/18 15:03 Dose: 50 mls Methylprednisolone Sodium Succinate (Solu-Medrol) 125 mg IVP EDNOW ONE Stop: 10/26/18 14:07 Last Admin: 10/26/18 14:21 Dose: 125 mg Ondansetron HCl (Zofran) 4 mg IVP EDNOW ONE Stop: 10/26/18 13:57 Last Admin: 10/26/18 14:15 Dose: 4 mg Point of Care Test Results: Chemistry 10/26/18 14:05 POC Troponin I 0.00 ng/mL ng/mL (0.00-0.08) Departure - Departure Disposition: [facility] Inpatient Acute Clinical Impression: Severe sepsis Fever Qualifiers: Fever type: unspecified Qualified Code(s): R50.9 - Fever, unspecified Condition: Fair
--- NOTE | 2018-10-26 14:09 | CPEKG ---
Test Reason : OPEN Blood Pressure : / mmHG Vent. Rate : 081 BPM Atrial Rate : 081 BPM P-R Int : 188 ms QRS Dur : 109 ms QT Int : 469 ms P-R-T Axes : 028 001 052 degrees QTc Int : 545 ms Sinus rhythm Confirmed by Lian Johnson ([id number]) on 10/26/2018 2:09:06 PM Referred By: LIAN JOHNSON Confirmed By:Lian Johnson
[2018-10-26] MEDS ORDERED: NS 3,800 ML IV ONE (14:12)
[2018-10-26 14:15] LABS: PLATELET COUNT 305 10^3/uL (150-400)
[2018-10-26 14:19] LABS: INR 1.14 (0.83-1.16); PROTIME(PATIENT) 14.1 SEC (12.0-15.0)
[2018-10-26] MEDS ORDERED: IOPAMIDOL (ISOVUE 370) 100 ML BTL IV ONE (15:11)
--- NOTE | 2018-10-26 17:04 | PDGENHP ---
History and Physical - Chief Complaint fever - History of Present Illness Patient is a 68-year-old male with past medical history of multiple medical problems including coronary artery disease, insulin-dependent diabetes mellitus , hypertension, obesity, angina, chronic pain, recent L2-S1 spinal fusion complicated by development of a fluid collection that required surgical placement of a drain who was referred from [facility] after he presented there with fevers for the last 24 hr. He said starting yesterday he has had increased fatigue and developed sweats that prompted them to checked her temperature which was about 100. Apparently in the neurosurgery office his temperature was elevated to 104 degrees. In the emergency room it has been around 100 degrees. He has no localizing symptoms aside from generalized fatigue. His drain has not started putting out more fluid and the quality of the drainage has not changed either. He has not had increased pain in his back. He had some dry heaves today, but has not vomited. He denied any dysuria, diarrhea, cough, chest pain or other symptoms. History Information - Allergies/Home Medication List Allergies/Adverse Reactions: adhesive Allergy (Verified 10/12/18 21:53) Iodinated Contrast- Oral and IV Dye Allergy (Verified 10/12/18 21:53) BLISTERS povidone-iodine [From Betadine] Allergy (Verified 10/12/18 21:53) BLISTERS soap [From Betadine] Allergy (Verified 10/12/18 21:53) BLISTERS Home Medications: Acetaminophen [Tylenol ES 500 mg (*)] 1,500 mg PO HS 08/16/18 [Last Taken ] Atorvastatin Calcium [Lipitor 40 mg (*)] 40 mg PO DAILY 08/16/18 [Last Taken 09/11] Carboxymethylcellulose 1% [Refresh Celluvisc (*)] 1 drop EACHEYE DAILY 08/16/18 [Last Taken 10/26/18] Chlorthalidone [Chlorthalidone 25 mg (*)] 25 mg PO DAILY 08/16/18 [Last Taken ] Diltiazem HCl [Cartia XT 240mg] 240 mg PO DAILY 08/16/18 [Last Taken 10/26/18] Fluticasone Nasal [Flonase Nasal [place]] 2 sprays NASAL HS 08/16/18 [Last Taken 10/25/18] Furosemide [Lasix 40 MG (*)] 40 mg PO DAILY 08/16/18 [Last Taken 10/26/18] Herbals/Supplements -Info Only 1 ea PO DAILY 08/16/18 [Last Taken 09/03/18] Insulin Glargine [Lantus] 60 unit SC HS 08/16/18 [Last Taken 10/25/18] Insulin Lispro [Humalog] 45 unit SQ TIDMEAL 08/16/18 [Last Taken 10/26/18 08:00] Isosorbide Mononitrate [Imdur 30 mg (*)] 90 mg PO DAILY 08/16/18 [Last Taken 09/11] Loratadine 10 mg PO DAILY 08/16/18 [Last Taken 10/26/18] Montelukast Sodium [Singulair 10 mg (*)] 10 mg PO DAILY 08/16/18 [Last Taken 09/11] [place]-3 Fatty Acids [Fish Oil 1000 mg (*)] 1,000 mg PO DAILY 08/16/18 [Last Taken 10/26/18] Pantoprazole Sodium [Protonix 40mg (*)] 40 mg PO DAILY 08/16/18 [Last Taken 09/11] Prasugrel HCl [Effient 10mg (*)] 10 mg PO DAILY 08/16/18 [Last Taken 10/26/18] Ranolazine [Ranexa] 500 mg PO BID 08/16/18 [Last Taken 10/26/18 08:00] Sucralfate [Carafate 1 GM (*)] 1 gm PO TID 08/16/18 [Last Taken 10/26/18 08:00] diphenhydrAMINE [Benadryl 25 MG (*)] 75 mg PO HS 08/16/18 [Last Taken 10/25/18] metFORMIN HCL [Glucophage 500 mg (*)] 500 mg PO BIDMEAL 08/16/18 [Last Taken 09/11 08:00] tiZANidine HCL [Zanaflex 2MG (*)] 2 mg PO DAILY 08/16/18 [Last Taken 10/26/18] Gralise 1,800 mg PO DAILY 10/05/18 [Last Taken 10/26/18] Aspirin EC [Aspirin EC 81 mg (*)] 81 mg PO DAILY 10/26/18 [Last Taken 10/26/18] Lisinopril [Zestril 40 mg (*)] 40 mg PO DAILY 10/26/18 [Last Taken 10/26/18] Potassium Chloride [Klor-Con 10] 10 meq PO BID 10/26/18 [Last Taken 10/26/18] Ranitidine HCl 150 mg PO DAILY PRN 10/26/18 [Last Taken Unknown] I have personally reviewed and updated: family history, medical history, social history, surgical history - Past Medical History coronary artery disease, COPD, CVA, diabetes type 2, hypertension, hyperlipidemia, TIA Additional medical history: chronic back pain. 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 morbid obesity. DDD. esophageal spasm. GERD - Surgical History Reports: angioplasty, cholecystectomy, hernia repair, spinal surgery (multiple fusions and revisions), coronary stent Additional surgical history: multiple knee surgeries. shoulder replacement. knee replacement. tonsillectomy. sinus surgery. multiple hand surgeries. 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 Review of Systems Review of Systems: ROS: 10pt was reviewed & negative except for what was stated in HPI & below Physical Exam Physical Exam: Temp Pulse Resp BP Pulse Ox 37.6 C 73 21 H 114/56 L 93 10/26/18 16:00 10/26/18 16:00 10/26/18 16:00 10/26/18 16:00 10/26/18 16:00 Lab Data & Imaging Review 10/26/18 13:50 10/26/18 13:50 WBC 14.11 10^3/uL (3.80-9.50) H 10/26/18 13:50 RBC 4.69 10^6/uL (4.40-6.38) 10/26/18 13:50 Hgb 14.1 g/dL (13.7-17.5) 10/26/18 13:50 Hct 42.1 % (40.0-51.0) 10/26/18 13:50 MCV 89.8 fL (81.5-99.8) 10/26/18 13:50 MCH 30.1 pg (27.9-34.1) 10/26/18 13:50 MCHC 33.5 g/dL (32.4-36.7) 10/26/18 13:50 RDW 13.6 % (11.5-15.2) 10/26/18 13:50 Plt Count 305 10^3/uL (150-400) 10/26/18 13:50 MPV 9.5 fL (8.7-11.7) 10/26/18 13:50 Neut % (Auto) 73.2 % (39.3-74.2) 10/26/18 13:50 Lymph % (Auto) 13.7 % (15.0-45.0) L 10/26/18 13:50 Miner % (Auto) 12.3 % (4.5-13.0) 10/26/18 13:50 Eos % (Auto) 0.3 % (0.6-7.6) L 10/26/18 13:50 Baso % (Auto) 0.2 % (0.3-1.7) L 10/26/18 13:50 Nucleat RBC Rel Count 0.0 % (0.0-0.2) 10/26/18 13:50 Absolute Neuts (auto) 10.33 10^3/uL (1.70-6.50) H 10/26/18 13:50 Absolute Lymphs (auto) 1.93 10^3/uL (1.00-3.00) 10/26/18 13:50 Absolute Monos (auto) 1.74 10^3/uL (0.30-0.80) H 10/26/18 13:50 Absolute Eos (auto) 0.04 10^3/uL (0.03-0.40) 10/26/18 13:50 Absolute Basos (auto) 0.03 10^3/uL (0.02-0.10) 10/26/18 13:50 Absolute Nucleated RBC 0.00 10^3/uL (0-0.01) 10/26/18 13:50 Immature Gran % 0.3 % (0.0-1.1) 10/26/18 13:50 Immature Gran # 0.04 10^3/uL (0.00-0.10) 10/26/18 13:50 RBC/WBC/PLT Morphology TNP 10/26/18 13:50 Platelet Estimate TNP 10/26/18 13:50 PT 14.1 SEC (12.0-15.0) 10/26/18 13:50 INR 1.14 (0.83-1.16) 10/26/18 13:50 APTT 32.0 SEC (23.0-38.0) 10/26/18 13:50 VBG Lactic Acid 2.3 mmol/L (0.7-2.1) H 10/26/18 13:50 Sodium 136 mEq/L (135-145) 10/26/18 13:50 Potassium 3.8 mEq/L (3.5-5.2) 10/26/18 13:50 Chloride 100 mEq/L (97-110) 10/26/18 13:50 Carbon Dioxide 24 mEq/l (22-31) 10/26/18 13:50 Anion Gap 12 mEq/L (6-14) 10/26/18 13:50 BUN 15 mg/dL (7-23) 10/26/18 13:50 Creatinine 1.0 mg/dL (0.7-1.3) 10/26/18 13:50 Estimated GFR > 60 10/26/18 13:50 Glucose 84 mg/dL (70-100) 10/26/18 13:50 Calcium 9.5 mg/dL (8.5-10.4) 10/26/18 13:50 Total Bilirubin 1.7 mg/dL (0.1-1.4) H 10/26/18 13:50 Conjugated Bilirubin 0.2 mg/dL (0.0-0.5) 10/26/18 13:50 Unconjugated Bilirubin 1.5 mg/dL (0.0-1.1) H 10/26/18 13:50 AST 17 IU/L (17-59) 10/26/18 13:50 ALT 30 IU/L (21-72) 10/26/18 13:50 Alkaline Phosphatase 110 IU/L (38-126) 10/26/18 13:50 POC Troponin I 0.00 ng/mL (0.00-0.08) 10/26/18 14:05 Total Protein 7.1 g/dL (6.3-8.2) 10/26/18 13:50 Albumin 4.1 g/dL (3.5-5.0) 10/26/18 13:50 Lipase 21 IU/L (23-300) L 10/26/18 13:50 Urine Color YELLOW 10/26/18 14:45 Urine Appearance CLEAR 10/26/18 14:45 Urine pH 5.0 (5.0-7.5) 10/26/18 14:45 Ur Specific [place] 1.010 (1.002-1.030) 10/26/18 14:45 Urine Protein NEGATIVE (NEGATIVE) 10/26/18 14:45 Urine Ketones NEGATIVE (NEGATIVE) 10/26/18 14:45 Urine Blood NEGATIVE (NEGATIVE) 10/26/18 14:45 Urine Nitrate NEGATIVE (NEGATIVE) 10/26/18 14:45 Urine Bilirubin NEGATIVE (NEGATIVE) 10/26/18 14:45 Urine Urobilinogen NEGATIVE EU (0.2-1.0) 10/26/18 14:45 Ur Leukocyte Esterase NEGATIVE (NEGATIVE) 10/26/18 14:45 Urine RBC NONE SEEN /hpf (0-3) 10/26/18 14:45 Urine WBC 1-3 /hpf (0-3) 10/26/18 14:45 Ur Epithelial Cells NONE SEEN /lpf (NONE-1+) 10/26/18 14:45 Hyaline Casts 5-15 /lpf (0-1) 10/26/18 14:45 Urine Mucus TRACE /lpf (NONE-1+) 10/26/18 14:45 Urine Glucose NEGATIVE (NEGATIVE) 10/26/18 14:45 Assessment & Plan Assessment: 68-year-old male with multiple medical problems including hypertension diabetes obesity coronary artery disease hypertension hyperlipidemia with recent spinal fusion complicated by revision admitted for sepsis. Sepsis-patient with a leukocytosis and fever along with an elevated lactate. Source to be determined. I discussed the case with the emergency room physician and the patient Was given Rocephin in the emergency room. Concerning for possible spinal infection. I reviewed the CT of the chest and abdomen which shows no pulmonary embolism and no obvious source of infection. -blood cultures were drawn -consult Infectious Disease -fluids -Tylenol -repeat lactate until under two -if patient decompensates would start broad-spectrum antibiotics -hold off on further antibiotics for now though Hyperbilirubinemia- patient has a mild elevated unconjugated bilirubin. His no abdominal pain and I reviewed the CT scan of his abdomen which shows no acute pathology. He is status post cholecystectomy -monitor Coronary artery disease- status post placement of 2 stents in 2016. Outside facility. On Ranexa, Effient, aspirin, statin all of which should be continued Hypertension- takes multiple medications including isosorbide lisinopril chlorthalidone diltiazem Lasix. Would hold these in the setting of sepsis and hypotension but restart as needed and as pressures rebound. Insulin-dependent diabetes mellitus- takes large doses of Lantus and lispro. Takes 60 units of Lantus at night along with 45 units of lispro with meals. Also on metformin. Would reduce his dose by 20% start and add sliding scale insulin for breakthrough hyperglycemia GERD- on ranitidine and Carafate. Find to continue Prophylaxis-SCDs and heparin Fluids-normal saline Electrolytes within normal limits Nutrition cardiac diet Cor DNR Dispo observation for fever, sepsis
[2018-10-26] MEDS ORDERED: ONDANSETRON 4 MG/2 ML VIAL IVP PRN (17:14)
[2018-10-26] MEDS ORDERED: ONDANSETRON DISINTEGRATING 4 MG TAB PO PRN (17:14)
[2018-10-26] MEDS ORDERED: ACETAMINOPHEN 325 MG TAB PO PRN (17:14)
[2018-10-26] MEDS ORDERED: NS 1,000 ML IV SCH (17:15)
[2018-10-26] MEDS ORDERED: D50W 25 GM/50 ML SYR IVP PRN (18:01)
[2018-10-26] MEDS ORDERED: FAMOTIDINE 20 MG TAB PO PRN (18:51)
[2018-10-26] MEDS: INSULIN LISPRO 100 UNIT/ML SC SCH (19:43)
[2018-10-26] MEDS: INSULIN GLARGINE 100 UNITS/ML UNIT SC SCH (23:24)
[2018-10-26] MEDS: SUCRALFATE 1 GM TAB PO SCH (23:24)
[2018-10-26] MEDS: HEPARIN 5,000 UNIT/0.5 ML INJ SC SCH (23:24)
[2018-10-26] MEDS: RANOLAZINE 500 MG TAB.ER PO SCH (23:24)
[2018-10-27 05:00] LABS: PLATELET COUNT 258 10^3/uL (150-400)
[2018-10-27] MEDS: HEPARIN 5,000 UNIT/0.5 ML INJ SC SCH ×3 (06:34→21:57)
[2018-10-27] MEDS: ASPIRIN EC 81 MG TAB PO SCH (08:27)
[2018-10-27] MEDS: CARBOXYMETHYLCELLULOSE 1% 0.4 ML DROPERETTE EACHEYE SCH (08:28)
[2018-10-27] MEDS: ATORVASTATIN CALCIUM 40 MG TAB PO SCH (08:28)
[2018-10-27] MEDS: DILTIAZEM XR 240 MG CAP PO SCH (08:29)
[2018-10-27] MEDS: RANOLAZINE 500 MG TAB.ER PO SCH ×2 (08:30→21:55)
[2018-10-27] MEDS: PRASUGREL HCL 10 MG TAB PO SCH (08:30)
[2018-10-27] MEDS: SUCRALFATE 1 GM TAB PO SCH ×3 (08:30→21:55)
[2018-10-27] MEDS: INSULIN LISPRO 100 UNIT/ML SC SCH ×4 (08:31→17:20)
[2018-10-27] MEDS: tiZANidine HCL 2 MG TAB PO SCH (08:31)
[2018-10-27] MEDS: PANTOPRAZOLE SODIUM 40 MG TAB PO SCH (08:31)
[2018-10-27] MEDS: [UNRECOGNIZED DRUG - OTHER] PO SCH (08:39)
[2018-10-27] MEDS: GABAPENTIN PO SCH (08:39)
[2018-10-27] MEDS ORDERED: BACITRACIN 50,000 UNITS/10 ML SYR IRR ONE (10:32)
[2018-10-27] MEDS ORDERED: CHLORHEXIDINE GLUC HIBICLENS 118 ML BTL TP ONE (10:32)
[2018-10-27] MEDS ORDERED: BUPIVACAINE/EPI 0.25% 30 ML SDV ONE (10:32)
[2018-10-27] MEDS ORDERED: VANCOMYCIN 1 GM VIAL ONE (10:35)
--- NOTE | 2018-10-27 11:03 | PDANEPAE ---
ANE History of Present Illness here for lumbar I and D ANE Past Medical History - Cardiovascular History Hx Hypertension: Yes Hx Arrhythmias: No Hx Chest Pain: No Hx Coronary Artery / Peripheral Vascular Disease: Yes Hx CHF / Valvular Disease: No Hx Palpitations: No Cardiovascular History Comment: STENTS X2 2016. [place] 2016 - Pulmonary History Hx COPD: No Hx Asthma/Reactive Airway Disease: No Hx Recent Upper Respiratory Infection: No Hx Oxygen in Use at Home: No Hx Sleep Apnea: No Sleep Apnea Screening Result - Last Documented: Positive - Neurologic History Hx Cerebrovascular Accident: Yes Hx Seizures: No Hx Dementia: No Neurologic History Comment: HEAT INDUCED STROKE 2011 - Endocrine History Hx Diabetes: Yes Endocrine History Comment: NIDDM - Renal History Hx Renal Disorders: No - Liver History Hx Hepatic Disorders: No - Neurological & Psychiatric Hx Hx Neurological and Psychiatric Disorders: No - Cancer History Hx Cancer: Yes Cancer History Comment: SKIN - Congenital Disorder History Hx Congenital Disorders: No - GI History Hx Gastrointestinal Disorders: Yes Gastrointestinal History Comment: GERD - Other Health History Other Health History: DJD. MILD GLAUCOMA - Chronic Pain History Chronic Pain: Yes (LOWER BACK) - Surgical History Prior Surgeries: LUMBAR FUSION X3 MOST RECENT 2013. RT TOTAL KNEE. RT KNEE ACL. RT THUMB RECONSTRUCTION. RT WRIST/ELBOW. RT SHLDR RTC. LT SHLDR RECONSTRLUCTION. RAEANN. UMBILICAL HERNIA. TONSILLECTOMY ANE Review of Systems Review of systems is: negative Review of Systems: - Exercise capacity Exercise capacity: >=4 METS ANE Patient History - Allergies Allergies/Adverse Reactions: adhesive Allergy (Verified 10/12/18 21:53) Iodinated Contrast- Oral and IV Dye Allergy (Verified 10/12/18 21:53) BLISTERS povidone-iodine [From Betadine] Allergy (Verified 10/12/18 21:53) BLISTERS soap [From Betadine] Allergy (Verified 10/12/18 21:53) BLISTERS - Home Medications Home medications: home medication list seen and reviewed Home Medications: Acetaminophen [Tylenol ES 500 mg (*)] 1,500 mg PO HS 08/16/18 [Last Taken ] Atorvastatin Calcium [Lipitor 40 mg (*)] 40 mg PO DAILY 08/16/18 [Last Taken 09/11] Carboxymethylcellulose 1% [Refresh Celluvisc (*)] 1 drop EACHEYE DAILY 08/16/18 [Last Taken 10/26/18] Chlorthalidone [Chlorthalidone 25 mg (*)] 25 mg PO DAILY 08/16/18 [Last Taken ] Diltiazem HCl [Cartia XT 240mg] 240 mg PO DAILY 08/16/18 [Last Taken 10/26/18] Fluticasone Nasal [Flonase Nasal [place]] 2 sprays NASAL HS 08/16/18 [Last Taken 10/25/18] Furosemide [Lasix 40 MG (*)] 40 mg PO DAILY 08/16/18 [Last Taken 10/26/18] Herbals/Supplements -Info Only 1 ea PO DAILY 08/16/18 [Last Taken 09/03/18] Insulin Glargine [Lantus] 60 unit SC HS 08/16/18 [Last Taken 10/25/18] Insulin Lispro [Humalog] 45 unit SQ TIDMEAL 08/16/18 [Last Taken 10/26/18 08:00] Isosorbide Mononitrate [Imdur 30 mg (*)] 90 mg PO DAILY 08/16/18 [Last Taken 09/11] Loratadine 10 mg PO DAILY 08/16/18 [Last Taken 10/26/18] Montelukast Sodium [Singulair 10 mg (*)] 10 mg PO DAILY 08/16/18 [Last Taken 09/11] [place]-3 Fatty Acids [Fish Oil 1000 mg (*)] 1,000 mg PO DAILY 08/16/18 [Last Taken 10/26/18] Pantoprazole Sodium [Protonix 40mg (*)] 40 mg PO DAILY 08/16/18 [Last Taken 09/11] Prasugrel HCl [Effient 10mg (*)] 10 mg PO DAILY 08/16/18 [Last Taken 10/26/18] Ranolazine [Ranexa] 500 mg PO BID 08/16/18 [Last Taken 10/26/18 08:00] Sucralfate [Carafate 1 GM (*)] 1 gm PO TID 08/16/18 [Last Taken 10/26/18 08:00] diphenhydrAMINE [Benadryl 25 MG (*)] 75 mg PO HS 08/16/18 [Last Taken 10/25/18] metFORMIN HCL [Glucophage 500 mg (*)] 500 mg PO BIDMEAL 08/16/18 [Last Taken 09/11 08:00] tiZANidine HCL [Zanaflex 2MG (*)] 2 mg PO DAILY 08/16/18 [Last Taken 10/26/18] Gralise 1,800 mg PO DAILY 10/05/18 [Last Taken 10/26/18] Aspirin EC [Aspirin EC 81 mg (*)] 81 mg PO DAILY 10/26/18 [Last Taken 10/26/18] Lisinopril [Zestril 40 mg (*)] 40 mg PO DAILY 10/26/18 [Last Taken 10/26/18] Potassium Chloride [Klor-Con 10] 10 meq PO BID 10/26/18 [Last Taken 10/26/18] Ranitidine HCl 150 mg PO DAILY PRN 10/26/18 [Last Taken Unknown] - NPO status NPO Status: no food or drink >8 hours NPO Since - Liquids (Date): 10/27/18 NPO Since - Liquids (Time): 08:30 NPO Since - Solids (Date): 10/26/18 NPO Since - Solids (Time): 08:30 - Smoking Hx Smoking Status: Former smoker - Alcohol Use Alcohol Use: Sober ANE Labs/Vital Signs - Labs Result Diagrams: 10/27/18 04:51 10/27/18 04:51 - Vital Signs Vital Signs: reviewed preoperatively; see RN documention for details Blood Pressure: 105/59 Heart Rate: 82 Respiratory Rate: 16 O2 Sat (%): 96 Height: 182.88 cm Weight: 125.645 kg ANE Physical Exam - Airway Neck exam: FROM, increased neck circumference Mallampati Score: Class 2 Mouth exam: normal dental/mouth exam - Pulmonary Pulmonary: no respiratory distress - Cardiovascular Cardiovascular: regular rate and rhythym - ASA Status ASA Status: III ANE Anesthesia Plan Anesthesia Plan: general endotracheal anesthesia Specialized Airway: video laryngoscope
[2018-10-27] MEDS ORDERED: PROPOFOL/EMULSION 500 MG/50 ML BOTTLE IV ONE (11:04)
[2018-10-27] MEDS ORDERED: fentaNYL 100 MCG/2 ML INJ ONE ×2 (11:07→11:48)
[2018-10-27] MEDS ORDERED: ONDANSETRON 4 MG/2 ML VIAL ONE (11:33)
[2018-10-27] MEDS ORDERED: NALOXONE HCL 0.4 MG/ML INJ IVP PRN ×2 (11:36→13:26)
[2018-10-27] MEDS ORDERED: NS 500 ML IV PRN (11:36)
[2018-10-27] MEDS ORDERED: HYDROmorphONE/DILAUDID 1 MG/ML INJ IVP PRN ×2 (11:36→13:26)
[2018-10-27] MEDS ORDERED: DEXAMETHASONE 4 MG/ML VIAL IVP PRN (11:36)
[2018-10-27] MEDS ORDERED: fentaNYL 100 MCG/2 ML INJ IVP PRN (11:36)
[2018-10-27] MEDS ORDERED: ONDANSETRON 4 MG/2 ML VIAL IVP PRN (11:36)
[2018-10-27] MEDS ORDERED: LR 500 ML IV PRN (11:36)
[2018-10-27] MEDS ORDERED: ALBUTEROL 3 ML DEYVIAL IH PRN (11:36)
[2018-10-27] MEDS ORDERED: BUPIVACAINE 0.5% 30 ML SDV ONE (12:09)
[2018-10-27] MEDS: THROMBIN (BOVINE) 5,000 UNIT VIAL TP ONE ×2 (12:19→12:31)
[2018-10-27] MEDS ORDERED: PETROLAT,WHT/MIN OIL/SOD CHL 3.5 GM OPHT.OINT ONE (12:58)
[2018-10-27] MEDS ORDERED: ROCURONIUM 100 MG/10 ML VIAL ONE (12:58)
--- NOTE | 2018-10-27 13:15 | POSTOPPROG ---
Post Op Note Date of Operation: 10/27/18 Surgeon: Ti Eddy Change Management Expert: [place] Anesthesia: GET(General Endotracheal) Pre-op Diagnosis: lumbar post surgical wound infection Post-op Diagnosis: same as preoperative Indication: wound infection with fevers and elevated WBC cunt Procedure: lumbar wound I and D Findings: deep subfascial wound infection Inf/Abcess present in the surg proc area at time of surgery?: Yes Depth: Deep Incisional (Fascial) (beneath fascia, liquid and phlegmonous purulence) Complications: none Drains: Hemovac (hemovac x 1 to the operative bed to full suction) Specimen(s): cultures to micro including aerobes/anaerobes/fungal and others
--- NOTE | 2018-10-27 13:18 | POSTOPPROG ---
Post Op Note Date of Operation: 10/27/18 Surgeon: Ti dEdy Pre-op Diagnosis: SEE DR EDDY's POST OP NOTE Inf/Abcess present in the surg proc area at time of surgery?: Yes Depth: Deep Incisional (Fascial)
[2018-10-27] MEDS ORDERED: diphenhydrAMINE 25 MG CAP PO PRN (13:26)
[2018-10-27] MEDS ORDERED: MAGNESIUM HYDROXIDE 30 ML UDCUP PO PRN (13:26)
[2018-10-27] MEDS ORDERED: POLYETHYLENE GLYCOL 3350 17 GM PKT PO PRN (13:26)
[2018-10-27] MEDS ORDERED: HYDROCODONE/APAP 5/325 TAB PO PRN (13:26)
[2018-10-27] MEDS ORDERED: oxyCODONE IR 5 MG TAB PO PRN (13:26)
[2018-10-27] MEDS ORDERED: LACTULOSE 20 GM/30 ML UDCUP PO PRN (13:26)
[2018-10-27] MEDS ORDERED: HYDROmorphONE/DILAUDID 6 MG/30 ML PCA IV PRN (13:26)
[2018-10-27] MEDS ORDERED: METHOCARBAMOL 750 MG TAB PO PRN (13:26)
[2018-10-27] MEDS ORDERED: BISACODYL 10 MG SUPP PR PRN (13:26)
--- NOTE | 2018-10-27 13:26 | SOAPPROG ---
SOAP Progress Note Assessment/Plan: Post Op Visit: S: Awake and alert. NAD. Pt with expected lower back pain O: AFVSS/PERRLA/EOMI no droop CN 2-12 grossly intact +lt touch 5/5 BUE/BLE = CDI NASREEN in place A/P: 68 yo male that is s/p wound washout with hx of fusion surgery on 09/10/18 -orders in place -IM seeing pt as well -ID to see patient -call with any questions or concerns -pt understands and agrees -Dr Eddy spoke with -pt updated Objective: Vital Signs Temp Pulse Resp BP Pulse Ox 36.4 C 82 16 105/59 L 96 10/27/18 10:41 10/27/18 11:02 10/27/18 11:02 10/27/18 11:02 10/27/18 11:02 Microbiology 10/26/18 16:47 Gram Stain - Final Back - Aspirate Laboratory Results 10/27/18 04:51 10/27/18 04:51 10/26/18 10/27/18 10/28/18 05:59 05:59 05:59 Intake Total 4450 1286 Output Total 835 800 Balance 3615 486 PT 14.1 SEC (12.0-15.0) 10/26/18 13:50 INR 1.14 (0.83-1.16) 10/26/18 13:50 ICD10 Worksheet Patient Problems: Problems Problem Status Onset Fever Acute Severe sepsis Acute Wound infection complicating hardware Acute Fusion of spine of lumbar region Acute - ICD10 Problem Qualifiers (1) Wound infection complicating hardware
--- NOTE | 2018-10-27 13:41 | POSTANESTH ---
Post Anesthetic Evaluation Cardiovascular Status: Normal, Stable Respiratory Status: Normal, Stable Level of Consciousness/Mental Status: Can Participate in Eval Pain Control: Adequate, Prn Tx Ordered Nausea/Vomiting Control: Adequate, Prn Tx Ordered Complications Possibly Related to Anesthesia: None Noted
--- NOTE | 2018-10-27 13:57 | HOSPPROG ---
Hospitalist Progress Note Assessment/Plan: 68-year-old with a past medical history significant for insulin-dependent diabetes, obesity and recent L2 through S1 spinal fusion complicated by development of a fluid collection required drain placement referred from [facility]surgery [facility] after having a fever for 24 hr. Culture from drain did grow gram-positive cocci so he went for a washout this morning. # fever, likely secondary to wound infection. Status post washout this morning. ID has been consulted will start him on vancomycin and follow up on cultures. Discussed in detail with Neurosurgery * Washout 10/27/18 # insulin-dependent diabetes, on glargine and lispro. Will need to use his insulin sliding scale in addition to his baseline insulin to help control blood sugars. * Insulin sliding scale on top of his baseline * Hold metformin # coronary artery disease currently asymptomatic * No symptoms of chest pain * Resume aspirin when okay per Neurosurgery * Currently on Effient, aspirin and Ranexa # hypertension # obesity # chronic pain # GERD Subjective: Upset about the fact it is go back to surgery but has no other complaints such as chest pain or shortness of breath currently, patient new to me and chart reviewed Objective: Vital Signs Temp Pulse Resp BP Pulse Ox 36.4 C 82 19 110/61 96 10/27/18 13:13 10/27/18 11:02 10/27/18 13:41 10/27/18 13:41 10/27/18 13:41 Microbiology 10/26/18 16:47 Gram Stain - Final Back - Aspirate Laboratory Results 10/27/18 04:51 10/27/18 04:51 10/26/18 10/27/18 10/28/18 05:59 05:59 05:59 Intake Total 4450 2086 Output Total 835 850 Balance 3615 1236 PT 14.1 SEC (12.0-15.0) 10/26/18 13:50 INR 1.14 (0.83-1.16) 10/26/18 13:50 - Physical Exam Constitutional: uncomfortable Eyes: PERRL Ears, Nose, Mouth, Throat: moist mucous membranes Cardiovascular: regular rate and rhythym Respiratory: no respiratory distress, clear to auscultation Gastrointestinal: normoactive bowel sounds Genitourinary: no bladder fullness Skin: warm Neurologic: AAOx3 Psychiatric: interacting appropriately ICD10 Worksheet Patient Problems: Problems Problem Status Onset Fusion of spine of lumbar region Acute Fever Acute Severe sepsis Acute Wound infection complicating hardware Acute
[2018-10-27] MEDS: GABAPENTIN 300 MG CAP PO SCH ×2 (14:36→21:57)
--- NOTE | 2018-10-27 14:57 | GCON ---
[f rep st] CONSULTATION INPATIENT INFECTIOUS DISEASE CONSULTATION REFERRING PHYSICIAN: Philippe Simon PA-C REASON FOR REFERRAL: Probable hardware involved spinal infection. HISTORY OF PRESENT ILLNESS: The patient is a 68-year-old male who was admitted to [facility] on the afternoon of 10/26/2018 complaining of fever and back pain. The patient had an aspirat e done of a fluid collection around a recent L2-S1 spinal fusion. The Gram stain showed 2+ gram-posi tive cocci in clusters. The patient was admitted for probable postoperative infection and taken to [facility] today. Surgery revealed a fluid collection surrounding the hardware. This was washed out, an d drains were placed. He is now currently recovering back in his hospital room. The patient states he feels a little better than he did yesterday. No other new complaint. Denies rash. Denies prurit us. PAST MEDICAL HISTORY: 1. Coronary artery disease. 2. Hypertension. 3. COPD. 4. History of cerebrovascular accident. 5. Type 2 diabetes. 6. Hyperlipidemia. 7. History of transient ischemic attacks. 8. Chronic back pain. 9. Morbid obesity. 10. Degenerative disk disease. 11. Gastroesophageal reflux disease. 12. History of esophageal spasm. PAST SURGICAL HISTORY: 1. Status post angioplasty. 2. Status post cholecystectomy. 3. Status post hernia repair. 4. Status post multiple fusions of the spine. 5. Status post multiple knee surgeries. 6. Status post shoulder replacement. 7. Status post tonsillectomy. 8. Status post sinus surgery. 9. Status post multiple hand surgeries. ANTIBIOTICS: History of ceftriaxone use x1. Vancomycin infused during surgery. ALLERGIES: Patient is allergic to adhesive and iodinated contrast dye. SOCIAL HISTORY: The patient is . The patient is a former tobacco user. No alcohol use curre ntly. No drug use. FAMILY HISTORY: Reviewed but noncontributory. REVIEW OF SYSTEMS: Other than that detailed above in the History of Present Illness, a comprehensive 10-system review is negative. PHYSICAL EXAMINATION: VITAL SIGNS: Temperature maximum is 38 degrees, temperature current 36.3 degr ees, heart rate 68, respiratory rate is 16, blood pressure is 121/56. GENERAL: The patient is a wel l-formed, well-nourished, obese older male in no acute distress. He is mildly toxic in appearance. He is alert and oriented x3. He is pleasant in demeanor. HEENT: Normocephalic for age. Atraumatic . No scleral icterus. No oral lesion or drainage from the nares. Eyes lids and conjunctivae are wi thin normal limits. Pupils are equal and round bilaterally. NECK: Supple. No meningismus. LUNGS: Clear to auscultation bilaterally with good effort. HEART: Regular rate and rhythm. No significa nt peripheral edema. SKIN: Warm and dry to the touch. No rash or lesion noted. MUSCULOSKELETAL: No muscle belly tenderness is noted. No joint line effusion or arthritis is seen. Patient does have a recent spinal incision in the lumbar sacral region with drain emerging there from. NEURO: Crania l nerves 2-12 seem to be intact. Peripheral sensation seems intact in extremities. LABORATORY DATA: The patient has a CBC dated 10/27/2018 that shows white blood cell count of 13.9, h emoglobin of 12.2, hematocrit of 37.1, and a platelet count of 258. Differential is left-shifted wit h 88% segmented neutrophils. Serum chemistries on 10/27/2018 show sodium 138, potassium 4.3, chlorid e of 108, bicarbonate of 20, BUN of 20, creatinine of 0.8. AST is 13, ALT is 29. Urinalysis on 08/2018 is within normal limits. Microbiologic data: The patient has a back aspirate dated 10/26/2018. Gram stain is significant for 2+ gram-positive cocci in clusters. Operative cultures from today are pending as well as stains. RADIOLOGIC DATA: Patient has a CT of the chest, abdomen and pelvis done on 10/26/2018. This shows a decrease in size previously drained paraspinal or subcutaneous fluid collection overlying his recent surgical area. ASSESSMENT: Probable postoperative infection with reports from the OR indicative of inflammation and purulent fluid going down to the hardware level. Status post washout currently. We will place him on vancomycin 1 g IV q.12 hours. We will recheck trough levels prior to the 4th dose. We will follo w up on microbiologic cultures. PLAN: 1. Start vancomycin 1 g IV q.12 hours. 2. Vancomycin trough prior to 4th dose. 3. Follow micro data and clinical course of the patient. /[id number]/MODL
[2018-10-27] MEDS: VANCOMYCIN HCL/NORMAL SALINE 250 ML IV SCH (15:07)
--- NOTE | 2018-10-27 18:17 | GCON ---
[f rep st] CONSULTATION DATE OF CONSULTATION: 10/27/2018 REFERRING PHYSICIAN: Hospitalist Medicine CONSULTING SERVICE: Hospitalist Medicine. REASON FOR CONSULT: A 68-year-old male with concern for a postoperative lumbosacral wound infection. 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 John Paul Anthony, complicated by development of what appears t o be a wound infection that he has been trying to manage with an IR-placed drain in the past 2-3 week s. Apparently, the patient spiked a fever. His white count increased and the fluid coming out of hi s drain was positive for gram-positive cocci. The patient himself has no current complaints, but thi s case has been discussed at length with my partner, Dr. Anthony, the PA on-call Mr. Kenny Hobbs and the PA who has been working this issue up, Mr. Cayetano Gutiérrez. PAST MEDICAL AND SURGICAL HISTORY: Per HPI with a large number of baseline medications. Hyperlipide nav, TIA, chronic back pain, hypoxia due to lung scarring from poison sona, morbid obesity, esophageal spasm, GERD, degenerative disk disease, angioplasty, cholecystectomy, hernia repair, multiple spinal surgeries. CODE STATUS: Do not resuscitate. ALLERGIES: Adhesive, iodinated contrast, iodine, soap. SOCIAL HISTORY: Former smoker. Denies alcohol or drug abuse. , retired [employer]. FAMILY HISTORY: Reviewed. REVIEW OF SYSTEMS: Ten points reviewed and negative other than in HPI. PHYSICAL EXAM: VITAL SIGNS: Temperature 37.6, heart rate 73, respiratory rate 21, saturating 93%. Blood pressure 114/56. NEUROLOGIC: Awake, alert, oriented x3. Appears stated age. No acute distre ss. Normal fluent speech. Normal cranial nerves. 5/5 upper and lower extremity strength. No prona tor drift. Normal sensory exam. No abnormal reflexes. No Painting's, clonus, or Babinski. No cereb ellar findings. Gait is deferred. The wound is inspected and does not show any sign of infection an d is not draining. LABS: White count 14.1, hemoglobin 14.1, platelet count 305. Sodium 136, potassium 3.8, BUN 15, cre atinine 1.0, glucose 84. IMAGING: There is no pertinent imaging to review. IMPRESSION AND PLAN: A 68-year-old male who had a lumbosacral fusion revision on 09/10/2018, with my partner, Dr. John Paul Anthony. The patient developed a postoperative fluid collection that was at tempted to be managed for approximately 3 weeks now by a drain. He has now spiked a fever and white count and fluid drainage that appears concerning for gross infection. I have discussed the case with Dr. Anthony who is unavailable and he would like to wash out the wound. I have also discussed this with our PA's on-call, eKnny Simon, and Cayetano Gutiérrez. Discussed with the patient and his . R isks, benefits and alternatives informed consent prior to procedure. We are proceeding to the operating room today for a lumbar wound incision and drainage. /[id number]/MODL
[2018-10-27] MEDS: SENNOSIDES/DOCUSATE SODIUM TAB PO SCH (21:55)
[2018-10-27] MEDS: INSULIN GLARGINE 100 UNITS/ML UNIT SC SCH (21:55)
[2018-10-28] MEDS: VANCOMYCIN HCL/NORMAL SALINE 250 ML IV SCH ×2 (03:26→14:51)
[2018-10-28] MEDS: GABAPENTIN 300 MG CAP PO SCH ×3 (05:13→21:32)
[2018-10-28 05:24] LABS: PLATELET COUNT 304 10^3/uL (150-400)
[2018-10-28] MEDS: HEPARIN 5,000 UNIT/0.5 ML INJ SC SCH (06:28)
--- NOTE | 2018-10-28 07:25 | NEUSURGPN ---
Date of Surgery: 10/27/18 Post Op Day: 1 Assessment/Plan: Assessment: 68 yo male that is s/p wound washout with hx of fusion surgery on . Pt is POD #1 s/p wound washout Plan: -s/p wound washout: pt with expected lower back pain -pt has some swelling to the hands bilaterally that is likely from the positioning in the OR -orders in place -IM seeing pt as well -ID to see patient-ABX per Dr Davis -call with any questions or concerns -pt understands and agrees -s/w Dr Eddy -NASREEN in place -pt updated Subjective: Awake and alert. NAD. Eating/drinking and voiding. No f/c/n/v/d. Objective: AFVSS/PERRLA/EOMI no droop CN 2-12 grossly intact +lt touch 5/5 BUE/BLE = CDI NASREEN in place Neuro Check Frequency: per routine Urinary Catheter in Place: No - Physician Discussed Patient with : [facility] Physical Exam - Vitals, I&O, Labs I and O 10/27/18 10/28/18 10/29/18 05:59 05:59 05:59 Intake Total 4450 2736 Output Total 835 1595 450 Balance 3615 1141 -450 Weight 125.645 kg 125.645 kg Intake: Oral (ml) 400 550 IV Intake (ml) 500 800 IV Infused (ml) 3550 1386 Ns 1,000 ml @ 75 mls/hr 1136 IV CONT CONSTANTINE Rx#: [id number] Vancomycin HCl/Normal 250 Saline 250 ml @ 250 mls/ hr IV Q12H CONSTANTINE Rx#: [id number] Output: Urine (ml) 825 1375 400 Urinal 825 1375 400 Estimated Blood Loss (ml) 50 NASREEN Drain Output (ml) 10 170 50 Back Miguel A Sunshine 10 170 50 Other: Intake Quantity Yes Sufficient Number of Voids Toilet 1 Urinal 1 1 Bladder Scan Volume (ml) Urinal 408 Microbiology 10/27/18 12:00 Mycobacterial Smear (KIMMY) - Final Back - Tissue 10/26/18 16:47 Gram Stain - Final Back - Aspirate 10/27/18 12:00 Gram Stain - Final Back - Eswab 10/27/18 12:00 Gram Stain - Final Back - Tissue Vital Signs Temp Pulse Resp BP Pulse Ox 36.6 C 69 17 149/76 H 94 10/28/18 04:00 10/28/18 04:00 10/28/18 04:00 10/28/18 04:00 10/28/18 04:00 Laboratory Results 10/28/18 04:50 10/28/18 04:50 ICD10 Worksheet Patient Problems: Problems Problem Status Onset Fever Acute Severe sepsis Acute Wound infection complicating hardware Acute Fusion of spine of lumbar region Acute - ICD10 Problem Qualifiers (1) Wound infection complicating hardware
[2018-10-28] MEDS: INSULIN LISPRO 100 UNIT/ML SC SCH ×3 (08:28→17:59)
[2018-10-28] MEDS: DILTIAZEM XR 240 MG CAP PO SCH (08:30)
[2018-10-28] MEDS: ATORVASTATIN CALCIUM 40 MG TAB PO SCH (08:30)
[2018-10-28] MEDS: RANOLAZINE 500 MG TAB.ER PO SCH ×2 (08:30→21:32)
[2018-10-28] MEDS: SUCRALFATE 1 GM TAB PO SCH ×3 (08:30→21:32)
[2018-10-28] MEDS: PRASUGREL HCL 10 MG TAB PO SCH (08:31)
[2018-10-28] MEDS: ASPIRIN EC 81 MG TAB PO SCH (08:31)
[2018-10-28] MEDS: SENNOSIDES/DOCUSATE SODIUM TAB PO SCH ×2 (08:31→21:32)
[2018-10-28] MEDS: PANTOPRAZOLE SODIUM 40 MG TAB PO SCH (08:32)
[2018-10-28] MEDS: tiZANidine HCL 2 MG TAB PO SCH (08:41)
[2018-10-28] MEDS: CARBOXYMETHYLCELLULOSE 1% 0.4 ML DROPERETTE EACHEYE SCH (08:41)
[2018-10-28] MEDS: [UNRECOGNIZED DRUG - OTHER] PO SCH (10:10)
[2018-10-28] MEDS: GABAPENTIN PO SCH (10:10)
--- NOTE | 2018-10-28 10:21 | HOSPPROG ---
Hospitalist Progress Note Assessment/Plan: 68-year-old with a past medical history significant for insulin-dependent diabetes, obesity and recent L2 through S1 spinal fusion complicated by development of a fluid collection required drain placement referred from [facility] after having a fever for 24 hr. Culture from drain did grow gram-positive cocci so he went for a washout this morning. # fever, likely secondary to wound infection. Status post washout 10/27/2018 ID has been consulted will start him on vancomycin and follow up on cultures. Discussed in detail with Neurosurgery * Washout 10/27/18 * Continue current antibiotic therapy and follow cultures # insulin-dependent diabetes, on glargine and lispro. Will need to use his insulin sliding scale in addition to his baseline insulin to help control blood sugars. * Insulin sliding scale on top of his baseline * Hold metformin # coronary artery disease currently asymptomatic * No symptoms of chest pain * Resume aspirin when okay per Neurosurgery * Currently on Effient, aspirin and Ranexa # hypertension * Resume usual medications now that he is eating regularly and will start physical therapy. # obesity # chronic pain * Pain medications and follow # GERD * Currently on PPI # DVT prophylaxis, on Lovenox Subjective: Discussed with ID. Overall doing well says his pain is well controlled but his sugars have been a retic. After reviewing his home meds I will increase his dose of insulin to his usual dose and resume his other medications. Objective: Vital Signs Temp Pulse Resp BP Pulse Ox 36.9 C 64 18 132/70 H 94 10/28/18 07:48 10/28/18 07:48 10/28/18 07:48 10/28/18 07:48 10/28/18 07:48 Microbiology 10/27/18 12:00 Mycobacterial Smear (KIMMY) - Final Back - Tissue 10/26/18 16:47 Gram Stain - Final Back - Aspirate 10/27/18 12:00 Gram Stain - Final Back - Eswab 10/27/18 12:00 Gram Stain - Final Back - Tissue Laboratory Results 10/28/18 04:50 10/28/18 04:50 10/27/18 10/28/18 10/29/18 05:59 05:59 05:59 Intake Total 4450 2736 400 Output Total 835 1595 450 Balance 3615 1141 -50 PT 14.1 SEC (12.0-15.0) 10/26/18 13:50 INR 1.14 (0.83-1.16) 10/26/18 13:50 - Physical Exam Constitutional: obese, uncomfortable Eyes: PERRL, EOMI Ears, Nose, Mouth, Throat: moist mucous membranes Cardiovascular: regular rate and rhythym Respiratory: no respiratory distress, clear to auscultation Gastrointestinal: no palpable masses Skin: normal color Musculoskeletal: abnormal gait Neurologic: AAOx3 Psychiatric: interacting appropriately ICD10 Worksheet Patient Problems: Problems Problem Status Onset Fusion of spine of lumbar region Acute Fever Acute Severe sepsis Acute Wound infection complicating hardware Acute
--- NOTE | 2018-10-28 10:23 | ASMTCASEMG ---
Living Arrangements What is your living Answers: With Spouse arrangement? Who do you live with? Type Of Residence What kind of residence do Answers: House you live in? Discharge Plan Comments Coordination Status Comments Notes: Patient is a 68yo male with multiple medical problems and a recent spinal fusion complicated by revision admitted for sepsis. Patient also admitted OBS for CAD, hypertension, hyperbilirubinemia, and insulin dependent diabetes mellitus. OT/PT/cardiac rehab evals have been ordered for the patient. D/C plan TBD. CM will follow. Date Signed: 10/28/2018 10:22 AM Electronically Signed By:Prema Aguilar LCSW
--- NOTE | 2018-10-28 11:42 | PCMIDPN ---
Assessment/Plan: Assessment: Postop spinal infection hardware involved. Aspirate from 10/26 is growing both Staphylococcus aureus as well as an uncommon Acinetobacter species. Right now the patient is being maintained on vancomycin monotherapy. Clinically he is doing very well. Will await corroboration from operative cultures taken yesterday before expanding to cover Acinetobacter. Also awaiting sensitivities on the Staph aureus. Plan: 1. Continue vancomycin monotherapy. 2. Follow up on deep surgical specimens from 10/27. Looking at these results to corroborate or throw in to question the Acinetobacter isolate from 10/26. 10/28/18 11:42 Subjective: Patient is doing well. He is ambulating around the room. He is in good spirits. Denies any new complaint or fever or chills. Anxious to go home. Objective: Vancomycin # 2 Vital Signs Temp Pulse Resp BP Pulse Ox 36.9 C 64 18 132/70 H 94 10/28/18 07:48 10/28/18 07:48 10/28/18 07:48 10/28/18 07:48 10/28/18 07:48 Microbiology 10/27/18 12:00 Mycobacterial Smear (KIMMY) - Final Back - Tissue 10/26/18 16:47 Gram Stain - Final Back - Aspirate 10/27/18 12:00 Gram Stain - Final Back - Eswab 10/27/18 12:00 Gram Stain - Final Back - Tissue Laboratory Results 10/28/18 04:50 10/28/18 04:50 10/27/18 10/28/18 10/29/18 05:59 05:59 05:59 Intake Total 4450 2736 400 Output Total 835 1595 450 Balance 3615 1141 -50 - Physical Exam General Appearance: WD/WN, alert, no apparent distress, obese, non-toxic Respiratory: lungs clear, normal breath sounds, No respiratory distress Cardiac/Chest: regular rate, rhythm, No tachycardia Skin: normal color, warm/dry, No rash Neuro/Psych: alert, normal mood/affect, oriented x 3 ICD10 Worksheet Patient Problems: Problems Problem Status Onset Fever Acute Severe sepsis Acute Wound infection complicating hardware Acute Fusion of spine of lumbar region Acute
[2018-10-28] MEDS: ACETAMINOPHEN 500 MG TAB PO SCH (21:31)
[2018-10-28] MEDS: POTASSIUM CL 10 MEQ TAB PO SCH (21:32)
[2018-10-28] MEDS: FLUTICASONE NASAL 120 SPRAYS/16 GM MDI EACHNARE SCH (21:33)
[2018-10-28] MEDS: INSULIN GLARGINE 100 UNITS/ML UNIT SC SCH (21:35)
[2018-10-28] MEDS: diphenhydrAMINE 25 MG CAP PO SCH (23:43)
[2018-10-29] MEDS: VANCOMYCIN HCL/NORMAL SALINE 250 ML IV SCH (03:11)
[2018-10-29] MEDS: GABAPENTIN 300 MG CAP PO SCH ×3 (03:36→22:17)
--- NOTE | 2018-10-29 07:40 | NEUSURGPN ---
Date of Surgery: 10/27/18 Post Op Day: 2 Assessment/Plan: Assessment: 68 yo male that is s/p wound washout with hx of fusion surgery on . Pt is POD #2 s/p wound washout Plan: -s/p wound washout: pt with expected lower back pain that is better -pt has some swelling to the hands bilaterally that is better as well -pt wants to go home-awaiting IM/ID clearance -orders in place -IM seeing pt as well -ID to see patient-ABX per Dr Davis -call with any questions or concerns -pt understands and agrees -d/w Dr Ramirez/[facility] -NASREEN in place -pt updated Subjective: Awake and alert. NAD. Eating/drinking and voiding. No f/c/n/v/d. No rowan/neck/ chest/abd or gu complaints. Objective: AFVSS/PERRLA/EOMI no droop CN 2-12 grossly intact +lt touch 5/5 BUE/BLE = CDI NASREEN in place Neuro Check Frequency: per routine Urinary Catheter in Place: No - Physician Discussed Patient with DrAnitha: [facility] Physical Exam - Vitals, I&O, Labs I and O 10/28/18 10/29/18 10/30/18 05:59 05:59 05:59 Intake Total 2736 2400 Output Total 1595 1405 Balance 1141 995 Weight 125.645 kg Intake: Oral (ml) 550 2150 IV Intake (ml) 800 IV Infused (ml) 1386 250 Ns 1,000 ml @ 75 mls/hr 1136 IV CONT CONSTANTINE Rx#: [id number] Vancomycin HCl/Normal 250 250 Saline 250 ml @ 250 mls/ hr IV Q12H CONSTANTINE Rx#: [id number] Output: Urine (ml) 1375 1350 Toilet 250 Urinal 1375 1100 Estimated Blood Loss (ml) 50 NASREEN Drain Output (ml) 170 55 Back Miguel A Sunshine 170 55 Other: Intake Quantity Yes Yes Sufficient Number of Voids Toilet 1 1 Urinal 1 1 Number of Stools Toilet 1 Microbiology 10/27/18 12:00 Gram Stain - Final Back - Eswab 10/27/18 12:00 Gram Stain - Final Back - Tissue 10/27/18 12:00 Mycobacterial Smear (KIMMY) - Final Back - Tissue 10/26/18 16:47 Gram Stain - Final Back - Aspirate Vital Signs Temp Pulse Resp BP Pulse Ox 36.3 C 66 14 140/67 H 94 10/28/18 23:46 10/28/18 23:46 10/28/18 23:46 10/28/18 23:46 10/28/18 23:46 Laboratory Results 10/28/18 04:50 10/28/18 04:50 ICD10 Worksheet Patient Problems: Problems Problem Status Onset Fever Acute Severe sepsis Acute Wound infection complicating hardware Acute Fusion of spine of lumbar region Acute - ICD10 Problem Qualifiers (1) Wound infection complicating hardware
[2018-10-29] MEDS: DILTIAZEM XR 240 MG CAP PO SCH (08:43)
[2018-10-29] MEDS: ISOSORBIDE MONONITRATE 30 MG TAB.SR PO SCH (08:47)
[2018-10-29] MEDS: LISINOPRIL 40 MG TAB PO SCH (08:47)
[2018-10-29] MEDS: PANTOPRAZOLE SODIUM 40 MG TAB PO SCH (08:47)
[2018-10-29] MEDS: CHLORTHALIDONE 25 MG TAB PO SCH (08:49)
[2018-10-29] MEDS: RANOLAZINE 500 MG TAB.ER PO SCH ×2 (08:49→20:45)
[2018-10-29] MEDS: SUCRALFATE 1 GM TAB PO SCH ×3 (08:49→22:16)
[2018-10-29] MEDS: CETIRIZINE 10 MG TAB PO SCH (08:50)
[2018-10-29] MEDS: PRASUGREL HCL 10 MG TAB PO SCH (08:50)
[2018-10-29] MEDS: ATORVASTATIN CALCIUM 40 MG TAB PO SCH (08:50)
[2018-10-29] MEDS: tiZANidine HCL 2 MG TAB PO SCH (08:50)
[2018-10-29] MEDS: ASPIRIN EC 81 MG TAB PO SCH (08:51)
[2018-10-29] MEDS: POTASSIUM CL 10 MEQ TAB PO SCH ×2 (08:51→20:45)
[2018-10-29] MEDS: FUROSEMIDE 40 MG TAB PO SCH (08:52)
[2018-10-29] MEDS: MONTELUKAST SODIUM 10 MG TAB PO SCH (08:52)
[2018-10-29] MEDS: CARBOXYMETHYLCELLULOSE 1% 0.4 ML DROPERETTE EACHEYE SCH (08:53)
[2018-10-29] MEDS: SENNOSIDES/DOCUSATE SODIUM TAB PO SCH ×2 (08:57→21:19)
[2018-10-29] MEDS: INSULIN LISPRO 100 UNIT/ML SC SCH ×3 (08:57→18:38)
[2018-10-29] MEDS: ceFAZolin 2 GM/DEXTROSE 100 ML IV SCH ×3 (09:07→22:16)
[2018-10-29] MEDS ORDERED: ALTEPLASE 2 MG VIAL IVP PRN (12:06)
--- NOTE | 2018-10-29 14:00 | PCMIDPN ---
Assessment/Plan: Assessment: 5-year-old man with deep surgical site infection complicating L2-L3 , L5-S1 posterior/transforaminal lumbar interbody fusion with PEEK interbody spacers caused by Streptococcus mitis/oralis. Cultures showing MSSA and Acinetobacter spp. are from a drain in place since 10.09 with replacement of the NASREEN portion on 10.12 and represent colonization of the tubing; no inflammatory cells seen on stain from this sample. Targeting Streptococcus recovered from deep culture. * Deep soft tissue infection involving lumbar spinal hardware with Streptococcus mitis/oralis * Status post I&D lumbar spinal abscess (10.27.18) * Status post L2-L3, L5-S1 posterior/transforaminal lumbar interbody fusion 09.10.18 * Status post lumbar spinal abscess drain placement 10.09.18, replaced 10.12.18 * Diabetes mellitus, type II Plan: * Stop vancomycin * Start cefazolin 2gm q8 hours; Plan at least 4 weeks of IV therapy * PICC line placement * Weekly labs: CBC with differential, CMP, CRP * ID follow up arranged for 11.08 * Reviewed in detail potential side effects of beta-lactam antibiotics to include: allergy, rash, nausea, antibiotic-associated diarrhea, Clostridioides difficile colitis. Leobardo Jeffery MD Infectious Diseases 10/29/18 15:04 Subjective: No fever or chills in the past 24-hours. Tolerating oral diet with solids and liquids. No nausea. Multiple loose bowel movements since yesterday, received MiraLax as part of bowel regimen yesterday. No rash. Appetite improving. Ambulating without difficulty. Improved since admission but not back to baseline health. Objective: Vital Signs Temp Pulse Resp BP Pulse Ox 37.0 C 67 16 129/73 H 96 10/29/18 08:00 10/29/18 08:43 10/29/18 08:00 10/29/18 08:49 10/29/18 08:00 Microbiology 10/26/18 16:47 Gram Stain - Final Back - Aspirate 10/27/18 12:00 Gram Stain - Final Back - Eswab 10/27/18 12:00 Gram Stain - Final Back - Tissue 10/27/18 12:00 Mycobacterial Smear (KIMMY) - Final Back - Tissue Laboratory Results 10/28/18 04:50 10/28/18 04:50 10/28/18 10/29/18 10/30/18 05:59 05:59 05:59 Intake Total 2732 2400 300 Output Total 7567 1405 Balance 1141 995 300 Ongoing monitoring for antimicrobial toxicity with: CBC, BMP, interval historical information, and interval physical exam. Discussed treatment/diagnostic testing and testing results with admitting provider(s). Personally reviewed interval laboratory results. - Physical Exam General Appearance: no apparent distress, non-toxic EENT: No scleral icterus Respiratory: No respiratory distress, No accessory muscle use, No crackles, No wheezing Neck: full range of motion, supple Cardiac/Chest: No bradycardia, No tachycardia, No diastolic murmur, No systolic murmur Extremities: No inflammation, No swelling Abdomen: non-tender, soft, No distended, No guarding Skin: No other (Dressings overlying lumbar spinal surgical incision sites not taken down; there is no erythema extending from the dressing edges, no induration, no fluctuance areas) Neuro/Psych: alert, normal mood/affect, oriented x 3, No confused ICD10 Worksheet Patient Problems: Problems Problem Status Onset Fever Acute Severe sepsis Acute Wound infection complicating hardware Acute Fusion of spine of lumbar region Acute
--- NOTE | 2018-10-29 14:39 | PDIAF ---
- Diagnosis Diagnosis: Lumbar spinal deep surgical site infection Code Status: Do Not Resuscitate - Medication Management Detention Antibiotics: cefazolin 2gm q8 hours Mechanic Sound Technician Antibiotic Stop Date: 11/26/18 Discharge Medications: electronically signed and located in the Home Medication List. PICC Care - Routine: Yes - Labs/Radiology CBC w/diff Date: 11/05/18 (Weekly while on cefazolin) CMP Date: 11/05/18 (Weekly while on cefazolin) CRP Date: 11/05/18 (Weekly while on cefazolin) Call or Fax Lab and Imaging Results to: Dr. Leobardo Jeffery; - Follow Up Care Current Providers and Referrals: EDITH BRYANT [Other] - As per Instructions Leobardo Jeffery MD [Medical Doctor] - 11/08/18
--- NOTE | 2018-10-29 15:33 | ASMTCMCOM ---
CM Note CM Note Notes: Spoke with Dr. Mao who states patient will need IV ABX at home after discharge. Referrals were sent to [facility] and [facility] services to see if they can do follow up care with the patient. Spoke with the patient and his . He lists Dr. Radha Elena as his PCP. This information was left for Domitila, [facility], on her phone message. We are awaiting the response from the agencies. CM will follow. Date Signed: 10/29/2018 03:32 PM Electronically Signed By:Prema Aguilar LCSW
--- NOTE | 2018-10-29 16:03 | HOSPPROG ---
Hospitalist Progress Note Assessment/Plan: 68-year-old with a past medical history significant for insulin-dependent diabetes, obesity and recent L2 through S1 spinal fusion complicated by development of a fluid collection required drain placement referred from [facility]surgery [facility] after having a fever for 24 hr. Culture from drain did grow gram-positive cocci so he went for a washout this morning. # fever, likely secondary to wound infection. Status post washout 10/27/2018 ID has been consulted will start him on vancomycin and follow up on cultures. Discussed in detail with Neurosurgery * Washout 10/27/18 * Continue current antibiotic therapy and follow cultures * Discussed with Infectious Disease, patient will be discharged on Ancef three times daily currently working on home IV antibiotics * PICC line placed today * Will need additional midnight stay for coordination of care of above issues and reviewing of bacterial cultures. # insulin-dependent diabetes, on glargine and lispro. Will need to use his insulin sliding scale in addition to his baseline insulin to help control blood sugars. * Insulin sliding scale on top of his baseline * Hold metformin, resume on discharge. # coronary artery disease currently asymptomatic * No symptoms of chest pain * Resume aspirin when okay per Neurosurgery * Currently on Effient, aspirin and Ranexa # hypertension * Resume usual medications now that he is eating regularly and will start physical therapy. # obesity # chronic pain * Pain medications and follow # GERD * Currently on PPI # DVT prophylaxis, on Lovenox Subjective: Patient doing well discuss his PICC line in Objective: Vital Signs Temp Pulse Resp BP Pulse Ox 37.0 C 67 16 129/73 H 96 10/29/18 08:00 10/29/18 08:43 10/29/18 08:00 10/29/18 08:49 10/29/18 08:00 Microbiology 10/26/18 16:47 Gram Stain - Final Back - Aspirate 10/27/18 12:00 Gram Stain - Final Back - Tissue 10/27/18 12:00 Gram Stain - Final Back - Eswab 10/27/18 12:00 Mycobacterial Smear (KIMMY) - Final Back - Tissue Laboratory Results 10/28/18 04:50 10/28/18 04:50 10/28/18 10/29/18 10/30/18 05:59 05:59 05:59 Intake Total 2736 2400 300 Output Total 1595 1405 600 Balance 1141 995 -300 PT 14.1 SEC (12.0-15.0) 10/26/18 13:50 INR 1.14 (0.83-1.16) 10/26/18 13:50 - Time Spent With Patient Time Spent with Patient: greater than 25 minutes (Coordination of care and discussion with family) Time Spent with Patient: Greater than 25 minutes spent on this patients care, greater than 50% of time spent counseling, educating, and coordinating care regarding the above mentioned plan. - Physical Exam Constitutional: no apparent distress Cardiovascular: regular rate and rhythym Respiratory: no respiratory distress Gastrointestinal: normoactive bowel sounds Skin: warm Neurologic: AAOx3 Psychiatric: interacting appropriately ICD10 Worksheet Patient Problems: Problems Problem Status Onset Fusion of spine of lumbar region Acute Fever Acute Severe sepsis Acute Wound infection complicating hardware Acute
--- NOTE | 2018-10-29 16:37 | ASMTCMCOM ---
CM Note CM Note Notes: [facility] patient. Mary is running the insurance but they are in network so there shouldn't be a problem. The discharge will happen tomorrow after we have confirmed with Mary regarding their acceptance and let [facility] know who the home health agency will be.[facility] thinks they will have the insurance auth in the morning. CM will follow. Date Signed: 10/29/2018 04:36 PM Electronically Signed By:Prema Aguilar LCSW
--- NOTE | 2018-10-29 16:53 | PDMN ---
Medical Necessity Medical necessity: [facility] [place] [facility] musculoskeletal sgy: lumbar incision and drainage. CPT 76491 4 days - INPT only list-. Wound or soft tissue repair needed; indications may include(: -Wound debridement. 68 yo M S/P lumbar fusion with post op fluid collection attempted to be managed outpt with drain, now with fever, elevated white count, fluid drainage. OP: deep subfascial wound infection - lumbar wound I/D. aspirate gram stain showed 2+ gram positive cocci in clusters, growing both Staphylococcus aureus and well as uncommon Acinetobacter species. > 2 MN ongoing med nec care needed IV ABX, PICC line placed.
[2018-10-29] MEDS: ACETAMINOPHEN 500 MG TAB PO SCH (20:45)
[2018-10-29] MEDS: INSULIN GLARGINE 100 UNITS/ML UNIT SC SCH (20:48)
[2018-10-29] MEDS: FLUTICASONE NASAL 120 SPRAYS/16 GM MDI EACHNARE SCH (20:49)
[2018-10-29] MEDS: diphenhydrAMINE 25 MG CAP PO SCH (23:29)
[2018-10-30] MEDS: GABAPENTIN 300 MG CAP PO SCH ×2 (00:16→13:23)
[2018-10-30] MEDS: ceFAZolin 2 GM/DEXTROSE 100 ML IV SCH ×2 (06:14→13:23)
--- NOTE | 2018-10-30 07:50 | NEUSURGPN ---
Date of Surgery: 10/27/18 Post Op Day: 3 Assessment/Plan: Assessment: 68 yo male that is s/p wound washout with hx of fusion surgery on . Pt is POD #3 s/p wound washout Plan: -s/p wound washout: pt with expected lower back pain that is better -pt has some swelling to the hands bilaterally that is better overall -pt wants to go home-awaiting IM/ID clearance-plan for today -orders in place -IM seeing pt as well -ID to see patient-ABX per ID -call with any questions or concerns -pt understands and agrees -d/w Dr Ramirez/Nunu -NASREEN in place -pt updated Subjective: Awake and alert. NAD. Eating/drinking and voiding. No f/c/n/v/d. Objective: AFVSS/PERRLA/EOMI no droop CN 2-12 grossly intact +lt touch 5/5 BUE/BLE = CDI NASREEN in place Neuro Check Frequency: per routine Urinary Catheter in Place: No - Physician Discussed Patient with DrAnitha: [facility] Neurosurgery Physical Exam - Vitals, I&O, Labs I and O 10/29/18 10/30/18 10/31/18 05:59 05:59 05:59 Intake Total 615 115 Output Total 20 Balance 595 115 Intake: Oral (ml) 500 IV Infused (ml) 115 115 ceFAZolin 2 GM/DEXTROSE 115 115 100 ml @ 200 mls/hr IV Q8HRS CONSTANTINE Rx#:[id number] Output: NASREEN Drain Output (ml) 20 Back Miguel A Sunshine 20 Vital Signs Temp Pulse Resp BP Pulse Ox 36.6 C 69 17 117/62 95 10/29/18 23:10 10/29/18 23:10 10/29/18 23:10 10/29/18 23:10 10/29/18 23:10 ICD10 Worksheet Patient Problems: Problems Problem Status Onset Fever Acute Severe sepsis Acute Wound infection complicating hardware Acute Fusion of spine of lumbar region Acute - ICD10 Problem Qualifiers (1) Wound infection complicating hardware
[2018-10-30 07:57] VITALS: BP 125/70
[2018-10-30] MEDS: INSULIN LISPRO 100 UNIT/ML SC SCH ×2 (08:52→13:20)
[2018-10-30] MEDS: ASPIRIN EC 81 MG TAB PO SCH (08:52)
[2018-10-30] MEDS: CARBOXYMETHYLCELLULOSE 1% 0.4 ML DROPERETTE EACHEYE SCH (08:53)
[2018-10-30] MEDS: ATORVASTATIN CALCIUM 40 MG TAB PO SCH (08:53)
[2018-10-30] MEDS: CETIRIZINE 10 MG TAB PO SCH (08:54)
[2018-10-30] MEDS: CHLORTHALIDONE 25 MG TAB PO SCH (08:54)
[2018-10-30] MEDS: DILTIAZEM XR 240 MG CAP PO SCH (08:54)
[2018-10-30] MEDS: FUROSEMIDE 40 MG TAB PO SCH (08:55)
[2018-10-30] MEDS: ISOSORBIDE MONONITRATE 30 MG TAB.SR PO SCH (08:56)
[2018-10-30] MEDS: PANTOPRAZOLE SODIUM 40 MG TAB PO SCH (08:56)
[2018-10-30] MEDS: POTASSIUM CL 10 MEQ TAB PO SCH (08:56)
[2018-10-30] MEDS: LISINOPRIL 40 MG TAB PO SCH (08:56)
[2018-10-30] MEDS: MONTELUKAST SODIUM 10 MG TAB PO SCH (08:56)
[2018-10-30] MEDS: tiZANidine HCL 2 MG TAB PO SCH (08:57)
[2018-10-30] MEDS: SENNOSIDES/DOCUSATE SODIUM TAB PO SCH (08:57)
[2018-10-30] MEDS: PRASUGREL HCL 10 MG TAB PO SCH (08:57)
[2018-10-30] MEDS: SUCRALFATE 1 GM TAB PO SCH (08:57)
[2018-10-30] MEDS: RANOLAZINE 500 MG TAB.ER PO SCH (08:57)
[2018-10-30] MEDS ORDERED: ENOXAPARIN 40 MG/0.4 ML SYR SC SCH (09:00)
--- NOTE | 2018-10-30 10:09 | PDIAF ---
- Diagnosis Diagnosis: Lumbar spinal deep surgical site infection Code Status: Do Not Resuscitate - Medication Management Snf Antibiotics: cefazolin 2gm q8 hours Job Putter Up And Ticket Preparer Antibiotic Stop Date: 11/26/18 Discharge Medications: electronically signed and located in the Home Medication List. PICC Care - Routine: Yes - Orders Services needed: Home Care, Registered Nurse Home Care Face to Face: I certify that this patient was under my care and that I had the required [id number] encounter meeting the encounter requirements on the discharge day. My findings support the fact that the patient is homebound as defined in Home Care Face to Face Continued: CMS Chapter 7 Medicare Benefits Manual 30.1.1 , The condition of the patient is such that there exists a normal inability to leave home and consequently, leaving home would require a considerable and taxing effort. Diet Recommendation: no restrictions on diet Diet Texture: Regular Texture Diet Additional Instructions: -take medications as directed -call with any questions or concerns -call on a daily basis with totals of NASREEN output -see Dr Ramirez's team for a recheck - Labs/Radiology CBC w/diff Date: 11/05/18 (Weekly while on cefazolin) CMP Date: 11/05/18 (Weekly while on cefazolin) CRP Date: 11/05/18 (Weekly while on cefazolin) Call or Fax Lab and Imaging Results to: Dr. Leobardo Jeffery; - Follow Up Care Current Providers and Referrals: EDITH BRYANT [Other] - As per Instructions Leobardo Jeffery MD [Medical Doctor] - 11/08/18 John Paul Anthony MD [Medical Doctor] - (call for appt tomorrow with Dr Olea team in the next 1-2 weeks)
--- NOTE | 2018-10-30 10:15 | ASMTLACE ---
LACE Length of stay for Answers: 4-6 days current admission Acuity / Level of Answers: Yes Care: Did the patient have an inpatient admission? Comorbidities - select Answers: Other Notes: Sepsis all that apply # of Emergency department Answers: 1-2 visits in the last 6 months Score: 9 Date Signed: 10/30/2018 10:14 AM Electronically Signed By:BALDO Street
--- NOTE | 2018-10-30 10:19 | ASMTDCNOTE ---
Case Management Discharge Discharge Order Complete? Answers: Yes Patient to Obtain Answers: Independently Medications Transportation Arranged Answers: Family/Friends EMTALA Complete Answers: No Case Management Transport Answers: No Form Complete Faxed Final Orders Answers: Yes Agency/Facility Transfer Answers: Yes Report Printed & Faxed to Receiving Agency Family Notified Answers: Yes Discharge Comments Notes: CM discussed case w/ Dr. Mao. Pt is being d/c'd today. CM notified [facility] and [facility] of the d/c. DC orders sent to both facilities. Mary will visit pt in his home today around 3-4PM. Therapies have cleared pt to d/c home without any needs. CM available for changes. Plan: Kiel JJ with [facility] Date Signed: 10/30/2018 10:17 AM Electronically Signed By:BALDO Street
--- NOTE | 2018-10-30 10:19 | ASDISCHSUM ---
Discharge Information Plan Status:Home with Home Health Medically Cleared to Leave:10/30/2018 Discharge Date:10/30/2018 CM D/C Disposition: ADT D/C Disposition:Home Health Service Projected Discharge Date:10/30/2018 11:00 AM Transportation at D/C: Discharge Delay Reason: Follow-Up Date:10/30/2018 11:00 AM Discharge Slot: Final Diagnosis: Placement Information Referral Type:*Home Health Care Services Referral ID:[id number] Provider Name:[facility]) Address [address] Address 2: City:[place] Selection Factors: State:[place] Referral Type:Home Infusion Referral ID:[id number] Provider Name:[facility] Address 1:[address] Address 2: City:[place] Selection Factors: State:[place] Patient Contact Information Contact Name:GRZEGORZ Relationship: Address: City: [facility] Phone: State/[facility] Code: Email: Financial Information Financial Class:HMO and PPO Plans Primary Plan Desc:[facility] Primary Plan Number:[id number] Secondary Plan Desc:MEDICARE INPATIENT Secondary Plan Number:[id number] Assessment Information LACE LACE Length of stay for Answers: 4-6 days current admission Acuity / Level of Answers: Yes Care: Did the patient have an inpatient admission? Comorbidities - select Answers: Other Notes: Sepsis all that apply # of Emergency department Answers: 1-2 visits in the last 6 months Score: 9 Date Signed: 10/30/2018 10:14 AM Electronically Signed By:BALDO Street [facility] Initial CM Assessment Living Arrangements What is your living Answers: With Spouse arrangement? Who do you live with? Type Of Residence What kind of residence do Answers: House you live in? Discharge Plan Comments Coordination Status Comments Notes: Patient is a 68yo male with multiple medical problems and a recent spinal fusion complicated by revision admitted for sepsis. Patient also admitted OBS for CAD, hypertension, hyperbilirubinemia, and insulin dependent diabetes mellitus. OT/PT/cardiac rehab evals have been ordered for the patient. D/C plan TBD. CM will follow. Date Signed: 10/28/2018 10:22 AM Electronically Signed By:Prema Aguilar LCSW [facility] CM Progress Note CM Note CM Note Notes: Spoke with Dr. Mao who states patient will need IV ABX at home after discharge. Referrals were sent to [facility] and [facility] to see if they can do follow up care with the patient. Spoke with the patient and his . He lists Dr. Radha Elena as his PCP. This information was left for Domitila, [facility], on her phone message. We are awaiting the response from the agencies. CM will follow. Date Signed: 10/29/2018 03:32 PM Electronically Signed By:Prema Aguilar LCSW [facility] CM Progress Note CM Note CM Note Notes: [facility] the patient. Mary is running the insurance but they are in network so there shouldn't be a problem. The discharge will happen tomorrow after we have confirmed with Mary regarding their acceptance and let [facility] know who the home health agency will be.[facility] thinks they will have the insurance auth in the morning. CM will follow. Date Signed: 10/29/2018 04:36 PM Electronically Signed By:Prema Aguilar LCSW Case Management Discharge Plan Note Case Management Discharge Discharge Order Complete? Answers: Yes Patient to Obtain Answers: Independently Medications Transportation Arranged Answers: Family/Friends EMTALA Complete Answers: No Case Management Transport Answers: No Form Complete Faxed Final Orders Answers: Yes Agency/Facility Transfer Answers: Yes Report Printed & Faxed to Receiving Agency Family Notified Answers: Yes Discharge Comments Notes: JUNITO discussed case w/ Dr. Mao. Pt is being d/c'd today. CM notified [facility] and [facility] of the d/c. DC orders sent to both facilities. Mary will visit pt in his home today around 3-4PM. Therapies have cleared pt to d/c home without any needs. JUNITO available for changes. Plan: Mary; RN with [facility] Date Signed: 10/30/2018 10:17 AM Electronically Signed By:BALDO Street Intervention Information
--- NOTE | 2018-10-30 10:36 | GDS ---
[f rep st] DISCHARGE SUMMARY DIAGNOSES: 1. Lumbar spinal deep surgical site infection, status post incision and drainage/washout on October 27. 2. Insulin-dependent diabetes. 3. Coronary artery disease, asymptomatic. 4. Hypertension. 5. Obesity. 6. Chronic pain. 7. Gastroesophageal reflux disease. PROCEDURES DONE: On admission it was an abdominal CT and a chest and thoracic CT angiogram, washout, I and D of previous lumbar surgical site on 10/27/2018. CONSULTATIONS: Infectious Disease and Neurosurgery. HOSPITAL COURSE: The patient is a 68-year-old man with a history significant for diabetes, who recen tly underwent a lumbar surgery. He had a fever and was admitted to the hospital after evaluation in the ER, with a CT scan of the abdomen and pelvis, and CT angiogram of the chest did not reveal any ob vious cause for the fever. Cultures were taken from the wound drains, which did reveal Staph aureus. He was taken to the OR on 10/27/2018 for a washout. He did well postoperatively and has remained a febrile. Infectious Disease assisted with antibiotic therapy. He will be discharged on home IV anti biotics and with close followup with Infectious Disease. CONDITION ON DISCHARGE: Good. He has remained afebrile. Vital signs are stable. DISCHARGE MEDICATIONS: Please see discharge medication form. FOLLOWUP: He will be discharged home. He will have home IV antibiotics set up at the time of discha rge. Follow up will be with Neurosurgery. He will check in daily with wound drainage parameters to the neurosurgical team. Total time spent with the patient on day of discharge and coordination of care was 35 minutes. /[id number]/MODL
--- NOTE | 2018-11-06 07:09 | GOP ---
[f rep st] OPERATIVE REPORT DATE OF OPERATION: SURGEON: Ti Eddy MD MAGAZINE GRINDER LOADER: Philippe Simon PA-C ANESTHESIA: GETA. PREOPERATIVE DIAGNOSIS: Postoperative lumbar wound infection. POSTOPERATIVE DIAGNOSIS: Postoperative lumbar wound infection. PROCEDURE PERFORMED: An exploration and wound washout of an L2-S1 spinal fusion infection and placem ent of a Miguel A-Sunshine drain. FINDINGS: Deep wound infection below the fascia, near the epidural space. SPECIMENS: Removed multiple. Cultures sent. ESTIMATED BLOOD LOSS: Less than 50 cc. INDICATIONS: The patient is a 68-year-old male. He has had a lumbar fusion with my partner, Dr. Nehemias Anthony from L2 to S1. He has had wound complications for some weeks now. This has been man aged with conservative care, placement of a drain by Interventional Radiology, and wound washings at home through his drain, as well as antibiotics. He presents with low-grade fevers and a spike in his white count. I discussed the case with his primary surgery, Dr. Anthony, and we both felt it was in his best interest to have a wound washout. It was discussed with the patient. Risks, benefit s, and alternatives were discussed, and he signed informed consent prior to the procedure DESCRIPTION OF PROCEDURE: The patient was brought into the operating room. A sign-in was performed. He was induced under general anesthesia without difficulty. Appropriate IV access was obtained. S CDs were placed to prevent DVT. He was turned prone onto a flat top Miguel A and a Ulysses frame. Pre ssure points were padded well. Back was washed with chlorhexidine shampoo and rubbing alcohol, which was allowed to dry. ChloraPrep was used to sterilize the skin. A sterile field was created with bl ue towels and Ioban and a sterile surgical drape. Prior to the procedure, a time-out was performed. An incision was opened bluntly, and all noticeable sutures were removed. There was no obvious infec tion in the superior tissues. We dissected down bluntly and with Bovie electrocautery until we got t o the fascia and then removed the sutures here as well. Below the fascia, we had noticed obvious pur ulent material and cultured this and sent it for microbiology studies. We irrigated all the infectio n material out and performed a pulse lavage as well. We performed hemostasis and placed a #7 flat NASREEN in the subfascial operative bed, tunneling out through the skin. We sprinkled vancomycin powder in the operative bed as well. We closed the fascia with 0 Vicryl suture and then closed the dermis with inverted 2-0 pop-off Vicryl suture. Skin edges were approximated well. We cleaned the skin with a wet and dry sponge. We closed the skin and then placed sterile dressings. We secured the drainage t ube with a stitch and hooked it up to a bulb to full compression. All counts were correct. I was th ere for the entirety of the procedure. There were no immediate surgical anesthetic complications. T he patient was transported to the recovery area and found to be in stable medical and neurologic cond ition. We will consult our Infectious Disease colleagues for antibiotic recommendations. His primar y surgeon was updated. 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 COMPLICATIONS: None. IMPLANTS: None. /[id number]/MODL
== END 2018-10-30 14:18 | disposition home health service (06) | DRG 863 ==
LOC: F3N 18:42 → OBSVTOIN 10-29 16:05
PROVIDERS: ADMIT Internal Medicine; ATTEND Internal Medicine
PROC: 0J9700Z Drainage of Back Subcutaneous Tissue and Fascia with Drainage Device, Open Approach (ICD-10-PCS; principal; 2018-10-27 11:00)
PROC: 02HV33Z Insertion of Infusion Device into Superior Vena Cava, Percutaneous Approach (ICD-10-PCS; 2018-10-29)
DX: T81.42XA Infection following a procedure, deep incisional surgical site, initial encounter (principal); Z98.1 Arthrodesis status; E78.5 Hyperlipidemia, unspecified; E11.9 Type 2 diabetes mellitus without complications; J44.9 Chronic obstructive pulmonary disease, unspecified; E66.01 Morbid (severe) obesity due to excess calories; Z68.37 Body mass index [BMI] 37.0-37.9, adult; Z86.73 Personal history of transient ischemic attack (TIA), and cerebral infarction without residual deficits; Z95.5 Presence of coronary angioplasty implant and graft; Z96.659 Presence of unspecified artificial knee joint; Z96.619 Presence of unspecified artificial shoulder joint; Z79.4 Long term (current) use of insulin; Z87.891 Personal history of nicotine dependence
CPT/HCPCS: 84484-ER; 96374; 97161-GP; 97165-GO; C1751; G0378; J0690; J0696; J1200; J1644; J1650; J1815; J2405; J2704; J2930; J3010; J3370; Q9967